=== PATIENT | female | born 1940 | race Caucasian/White ===

== ENCOUNTER 2018-12-03 15:55 | Inpatient (IN) | payer MEDICARE ==
--- NOTE | 2018-12-03 17:05 | ED ---
Chest Pain HPI - General Chief Complaint: Chest Pain Stated Complaint: Abnormal EKG Time Seen by Provider: 12/03/18 16:27 Source: patient, RN notes reviewed, old records reviewed Mode of arrival: wheelchair Limitations: no limitations - History of Present Illness Initial Comments: This is a 78-year-old female the ER for evaluation patient coming as presentation from family doctor's office for evaluation here emergency room. Patient does have chest pain left arm pain. He does have history of heart catheterization but no significant history of cardiac risk factors. No shortness of breath or diaphoresis -: minutes(s) Onset: during rest Pain Location: left chest Pain Radiation: LUE Severity: mild Severity scale (1-10): 3 Quality: aching, heaviness Consistency: constant Improves With: nothing Worsens With: exertion Anginal Symptoms: nausea Other Symptoms: other (None) Treatments Prior to Arrival: none - Related Data Home Medications Medication Instructions Recorded Confirmed Aspirin [Adult Low Dose Aspirin EC] 81 mg PO DAILY 12/03/18 12/03/18 Cetirizine HCl [Zyrtec] 10 mg PO DAILY PRN 12/03/18 12/03/18 Allergies Allergy/AdvReac Type Severity Reaction Status Date / Time codeine Allergy Unknown Verified 12/03/18 16:47 Latex, Natural Rubber Allergy Itching Verified 12/03/18 16:47 Review of Systems ROS Statement: Those systems with pertinent positive or pertinent negative responses have been documented in the HPI. ROS Other: All systems not noted in ROS Statement are negative. EKG Findings - EKG Comments: EKG Findings:: EKG shows sinus tenderness 60, ME 162, QRS 80, QTC 401 Past Medical History Past Medical History: No Reported History History of Any Multi-Drug Resistant Organisms: None Reported Past Surgical History: Heart Catheterization With Stent, Tonsillectomy Past Psychological History: No Psychological Hx Reported Smoking Status: Never smoker Past Alcohol Use History: Daily Past Drug Use History: None Reported General Exam Limitations: no limitations Course Vital Signs 12/03/18 16:00 Temperature 97.6 F Pulse Rate 69 Respiratory 18 Rate Blood Pressure 183/78 O2 Sat by Pulse 97 Oximetry - Reevaluation(s) Reevaluation #1: 12/03/18 18:16 Spoke with patient's primary care doctor prior to patient arrival Reevaluation #2: 12/03/18 18:16 Medical record is reviewed Reevaluation #3: 01/02/19 18:16 Patient does have persistent chest pain Reevaluation #4: 12/03/18 18:16 Repeat EKG Reevaluation #5: 12/03/18 18:16 spoke w cardiology regarding positive troponin, they're aware 12/03/18 18:16 - Consultations Consultation #1: Spoke with Dr. Mason which regarding admission he is agreeable Chest Pain MDM - MDM 78 female the ER for evaluation patient does say for evaluation of left arm pain chest pain. Patient sent in by primary care patient does have non-ST elevated OH troponin 0.5. Patient will be admitted for anticoagulation telemetry and cardiac monitoring. Cardiology to evaluate Critical Care Time Critical Care Time: Yes Total Critical Care Time: 31 Disposition Clinical Impression: Chest pain, NSTEMI (non-ST elevated myocardial infarction) Disposition: ADMITTED IP TO THIS HOSP Condition: Fair Instructions: Chest Pain (ED) Is patient prescribed a controlled substance at d/c from ED?: No Referrals: Nomi Naylor MD [Primary Care Provider] - 1-2 days
[2018-12-03 17:24] LABS: Basophils # (A) 0.1 k/uL (0-0.2); Basophils % (A) 1 %; Eosinophils # (A) 0.1 k/uL (0-0.7); Eosinophils % (A) 2 %; HCT 46.8 % (34.0-46.0); HGB 15.1 gm/dL (11.4-16.0); Lymphocytes # (A) 2.5 k/uL (1.0-4.8); Lymphocytes % (A) 34 %; MCH 29.4 pg (25.0-35.0); MCHC 32.3 g/dL (31.0-37.0); MCV 90.8 fL (80.0-100.0); Mean Platelet Volume 7.4; Monocytes # (A) 0.3 k/uL (0-1.0); Monocytes % (A) 4 %; Neutrophils # (A) 4.1 k/uL (1.3-7.7); Neutrophils % (A) 57 %; Platelet Count 198 k/uL (150-450); RBC 5.15 m/uL (3.80-5.40); RDW 13.5 % (11.5-15.5); WBC 7.3 k/uL (3.8-10.6)
[2018-12-03 17:31] LABS: ALT 25 U/L (9-52); AST 30 U/L (14-36); Alkaline Phosphatase 62 U/L (38-126); Anion Gap 10 mmol/L; Blood Urea Nitrogen 15 mg/dL (7-17); Calcium 9.6 mg/dL (8.4-10.2); Carbon Dioxide 25 mmol/L (22-30); Chloride 108 mmol/L (98-107); Glucose 124 mg/dL (74-99); Potassium 3.7 mmol/L (3.5-5.1); Sodium 143 mmol/L (137-145); Total Bilirubin 0.3 mg/dL (0.2-1.3); Total Protein 7.1 g/dL (6.3-8.2)
[2018-12-03 17:34] LABS: INR 0.9 (<1.2); Partial Thromboplastin Time 25.7 sec (22.0-30.0)
[2018-12-03 17:42] LABS: Creatine Kinase MB 3.6 ng/mL (0.0-2.4)
[2018-12-03 17:56] LABS: Troponin I 0.593 ng/mL (0.000-0.034)
--- NOTE | 2018-12-03 17:58 | XR ---
EXAMINATION TYPE: XR chest 2V DATE OF EXAM: 12/03/2018 COMPARISON: NONE HISTORY: Chest pain TECHNIQUE: Frontal and lateral views of the chest are obtained. FINDINGS: Heart and mediastinum are normal. Lungs are clear. Costophrenic angles are clear. Bony tho rax is intact. There are chest leads. IMPRESSION: No active cardiopulmonary disease. Normal heart.
[2018-12-03] MEDS ORDERED: HEPARIN SODIUM,PORCINE 5,000 UNIT/ML 1 ML VIAL IV PRN (18:13)
[2018-12-03] MEDS ORDERED: HEPARIN SODIUM,PORCINE 5,000 UNIT/ML 1 ML VIAL IV ONE (18:13)
[2018-12-03] MEDS ORDERED: NITROGLYCERIN SL TABS 0.4 MG TAB SUBLINGUAL PRN (18:13)
[2018-12-03] MEDS: HEPARIN SOD,PORK IN 0.45% NACL 25,000 UNIT in 0.45% NACL 1 250ML.BAG IV SCH (18:45)
--- NOTE | 2018-12-03 20:07 | P.HPIM ---
History of Present Illness H&P Date: 12/03/18 The patient is an 78 yo F with a PMH of CAD s/p 1 stent 15 years ago who was sent to the ED from her PMDs office due to substernal chest discomfort. The patient notes that over the past 3 months, she has been getting substernal chest discomfort that wakes her up sleep, occuring 1-2 x/week at 5-6 am in the morning usually, 3/10, w/ radiation to LUE, which would usually resolve within 2 minutes with a baby aspirin. She had a similar episode this am though noted that the pain persisted for ~ 10 minutes and she had to take 2 baby aspirins. She had associated lightheadedness but denied any SOB, palpitations, orthopnea, PND, nausea, vomiting, cough, or chills. She denied any associated w/ her dietary habits and denied having GERD or taking any OTC antacids or PPIs. She further denied any recent travel, sick contacts, fever, fever, chills, diarrhea , or LE swelling. At her daughter's insistence, she went to see her PMD who advised her to come to the ED. The patient notes that hasn't seen a [employer] in over a decade and doesn't routinely take aspirin or plavix. She only takes OTC Enablex for urinary incontinence and denied taking any additional medications. In the ED, the patient underwent a comprehensive w/u with CXR unremarkable, Troponin elevated to 0.593, CK-MB elevated at 3.6, WBC 7.3, Hgb 15, EKG showing normal sinus rhythm @ 68 bpm. Review of Systems Pertinent positives and negatives as discussed in HPI, a complete review of systems was performed and all other systems are negative. Past Medical History Past Medical History: No Reported History History of Any Multi-Drug Resistant Organisms: None Reported Past Surgical History: Heart Catheterization With Stent, Tonsillectomy Past Psychological History: No Psychological Hx Reported Smoking Status: Never smoker Past Alcohol Use History: Daily Past Drug Use History: None Reported Medications and Allergies Home Medications Medication Instructions Recorded Confirmed Type Aspirin [Adult Low Dose Aspirin EC] 81 mg PO DAILY 12/03/18 12/03/18 History Cetirizine HCl [Zyrtec] 10 mg PO DAILY PRN 12/03/18 12/03/18 History Allergies Allergy/AdvReac Type Severity Reaction Status Date / Time codeine Allergy Unknown Verified 12/03/18 16:47 Latex, Natural Rubber Allergy Itching Verified 12/03/18 16:47 Physical Exam Vitals: Vital Signs Temp Pulse Resp BP Pulse Ox 12/03/18 18:50 97.2 F L 61 16 116/78 96 12/03/18 16:00 97.6 F 69 18 183/78 97 Intake and Output 12/03/18 12/03/18 12/03/18 06:59 14:59 22:59 Other: Weight 86.183 kg General: [non toxic], [no distress], [appears at stated age], [normal weight] Derm: [no unusual rashes/lesions] [no unusual ecchymoses], [warm], [dry] Head: [atraumatic], [normocephalic], [symmetric] Eyes: [EOMI], [no lid lag], [anicteric sclera], [pupils equal round reactive to light] ENT: [Nose and ears atraumatic], [no thrush], [no pharyngeal erythema] Neck: [No thyromegaly], [no cervical lymphadenopathy], [trachea midline], [ supple] Mouth: [no lip lesion], [mucus membranes moist] Cardiovascular: [S1S2 reg], [no murmur], [positive posterior tibial pulse bilateral], [no edema], [capillary refill less than 2 seconds] Lungs: [CTA bilateral], [no rhonchi, no rales] , [no accessory muscle use] Abdominal: [soft], [ nontender to palpation], [no guarding], [no appreciable organomegaly], [normal bowel sounds] Ext: [no gross muscle atrophy], [muscle strength 5 out of 5 in all 4 extremities grossly], [no contractures], trace LE edema adrienne Neuro: [ CN II-XI grossly intact], [light touch intact all 4 extremities], [ finger to nose within normal limits], Psych: [Alert], [oriented], [appropriate affect] Results CBC & Chem 7: 12/03/18 16:55 12/03/18 16:55 Labs: Abnormal Lab Results - Last 24 Hours (Table) 12/03/18 12/03/18 12/03/18 Range/Units 16:55 16:55 16:55 Hct 46.8 H (34.0-46.0) % Chloride 108 H (98-107) mmol/L Glucose 124 H (74-99) mg/dL CK-MB (CK-2) 3.6 H (0.0-2.4) ng/mL Troponin I 0.593 H* (0.000-0.034) ng/mL Assessment and Plan Plan: NSTEMI -Trend troponin, EKG -Cardiology consult -Echocardiogram -C/w Aspirin, plavix, IV heparin -C/w Tele monitoring -C/w Lopressor PO -Start Lipitor -Check A1C, Lipid profile DVT//GI prophylaxis - IV Heparin - No indication for GI prophylaxis The patient is admitted with an anticipated greater than 2 midnight stay for evaluation of chest pain Surrogate decision-maker: CODE STATUS:Full-code Discussed with: Patient, daughter, Anticipated discharge date: 12/04/[address]: Home A total of 60 minutes was spent on the care of this complex patient more than 50 % of the time was spent in counseling and care coordination.
[2018-12-03] MEDS ORDERED: ATORVASTATIN 80 MG TAB PO STA (20:10)
[2018-12-03] MEDS: CLOPIDOGREL 75 MG TAB PO SCH (21:12)
[2018-12-03] MEDS: METOPROLOL TARTRATE 25 MG TAB PO SCH (21:12)
[2018-12-03 23:47] LABS: Creatine Kinase MB 3.5 ng/mL (0.0-2.4)
[2018-12-03 23:51] LABS: Troponin I 0.875 ng/mL (0.000-0.034)
[2018-12-04 06:08] LABS: Mean Platelet Volume 7.5; Platelet Count 176 k/uL (150-450)
[2018-12-04] MEDS ORDERED: hydrALAZINE HCL 20 MG/ML 1 ML VIAL IVP STA (06:26)
[2018-12-04] MEDS ORDERED: FUROSEMIDE 40 MG TAB PO STA (06:26)
[2018-12-04 06:51] LABS: Creatine Kinase MB 2.2 ng/mL (0.0-2.4)
[2018-12-04 07:00] LABS: Troponin I 0.504 ng/mL (0.000-0.034)
[2018-12-04 07:35] LABS: Cholesterol 232 mg/dL (<200); HDL Cholesterol 51 mg/dL (40-60); LDL Cholesterol,Calculated 159 mg/dL (0-99); Triglycerides 112 mg/dL (<150)
--- NOTE | 2018-12-04 08:50 | P.CRDCN ---
History of Present Illness Consult date: 12/04/18 Requesting physician: Barry Jones Consult reason: non-Q-wave LA Chief complaint: Chest pain History of present illness: This is an 78-year-old female with history of coronary artery disease and prior stent placement 15 years ago, she does have a history of hypertension and hyperlipidemia as well. Patient does not take any medications at home, she is not on a statin and not on an aspirin. She just takes Zyrtec when necessary. Patient was directed by Dr. Salamanca to come to the emergency room. She's been experiencing midsternal chest pressure and heaviness off and on. She just recently returned from a trip she was taking in [place], she states she had several episodes of chest discomfort while she was there and has been having symptoms for some time. Her EKG on arrival here showed a normal sinus rhythm with nonspecific ST-T wave changes in the anterior leads, with some mild ST depression noted in 1 and aVL. Her chest x-ray did not reveal any acute changes. White blood cell count 7.3, hemoglobin 15.1, platelet count 198. Sodium 143, potassium 3.7, BUN 15, creatinine 0.5. Magnesium 2.0. Troponin 0.59, 0.87, 0.50. Blood pressure earlier this morning 210/90, heart rate in the 50s, 99% on 2 L of oxygen. At the time of my examination her blood pressure was 158/66. Chest x-ray did not reveal any active cardiopulmonary disease. Patient was seen and examined in the emergency room, currently chest pain-free. Past Medical History Past Medical History: No Reported History History of Any Multi-Drug Resistant Organisms: None Reported Past Surgical History: Heart Catheterization With Stent, Tonsillectomy Date of Last Stent Placement:: 2003 Past Psychological History: No Psychological Hx Reported Smoking Status: Never smoker Past Alcohol Use History: Daily Past Drug Use History: None Reported - Past Family History Mother History Unknown: Yes Medications and Allergies Home Medications Medication Instructions Recorded Confirmed Type Aspirin [Adult Low Dose Aspirin EC] 81 mg PO DAILY 12/03/18 12/03/18 History Cetirizine HCl [Zyrtec] 10 mg PO DAILY PRN 12/03/18 12/03/18 History Allergies Allergy/AdvReac Type Severity Reaction Status Date / Time codeine Allergy Unknown Verified 12/03/18 16:47 Latex, Natural Rubber Allergy Itching Verified 12/03/18 16:47 Physical Exam Vitals: Vital Signs Temp Pulse Pulse Resp BP BP Pulse Ox 12/04/18 08:00 63 22 159/67 12/04/18 07:00 66 22 206/72 12/04/18 06:00 46 L 17 211/89 12/04/18 05:01 56 L 18 204/74 99 12/04/18 05:00 48 L 19 98 12/04/18 04:50 19 12/04/18 04:00 48 L 21 167/81 12/04/18 03:00 49 L 22 167/81 12/04/18 02:00 56 L 17 167/81 12/04/18 01:04 61 16 167/81 97 12/04/18 01:00 56 L 37 H 12/04/18 00:00 52 L 18 169/65 12/03/18 23:00 51 L 9 L 156/74 12/03/18 22:00 54 L 16 187/166 12/03/18 21:55 58 L 18 175/76 99 12/03/18 21:13 54 L 18 191/78 100 12/03/18 21:00 54 L 12 12/03/18 20:00 59 L 5 L 95 12/03/18 19:00 62 15 116/54 98 12/03/18 18:50 97.2 F L 61 16 116/78 96 12/03/18 18:00 64 10 L 134/61 98 12/03/18 17:00 64 17 140/61 98 12/03/18 16:31 69 14 12/03/18 16:00 97.6 F 69 18 183/78 97 Intake and Output 12/03/18 12/04/18 12/04/18 22:59 06:59 14:59 Intake Total 101.333 Balance 101.333 Intake: Intake, IV Titration 101.333 Amount Heparin Sod,Pork in 0.45% 101.333 NaCl 25,000 unit In 0.45 % NaCl 1 250ml.bag @ 11. 604 UNITS/KG/HR 10 mls/hr IV .Q24H [facility] Rx#: [id number] Other: # Voids 1 Weight 86.183 kg 86.183 kg PHYSICAL EXAMINATION: GENERAL: 78-year-old female in no acute distress at the time of my examination HEENT: Head is atraumatic, normocephalic. Pupils equal, round. Sclera anicteric. Conjunctiva are clear. Mucous membranes of the mouth are moist. Neck is supple. There is no elevated jugular venous pressure. No carotid bruit is heard. HEART EXAMINATION: Heart S1 S2 1 systolic murmur is heard. CHEST EXAMINATION: Lungs are clear to auscultation and precussion. No chest wall tenderness is noted on palpation or with deep breathing. ABDOMEN: Soft, nontender. Bowel sounds are heard. No organomegaly noted. EXTREMITIES: 2+ peripheral pulses with no evidence of peripheral edema and no calf tenderness noted. NEUROLOGIC patient is awake, alert and oriented 3 . . Results 12/04/18 05:50 12/03/18 16:55 Cardiac Enzymes 12/03/18 12/03/18 12/03/18 Range/Units 16:55 16:55 23:00 AST 30 (14-36) U/L CK-MB (CK-2) 3.6 H 3.5 H (0.0-2.4) ng/mL Troponin I 0.593 H* 0.875 H* (0.000-0.034) ng/mL 12/04/18 Range/Units 05:50 AST (14-36) U/L CK-MB (CK-2) 2.2 (0.0-2.4) ng/mL Troponin I 0.504 H* (0.000-0.034) ng/mL Coagulation 12/03/18 12/04/18 Range/Units 16:55 02:38 PT 10.0 (9.0-12.0) sec APTT 25.7 40.4 H (22.0-30.0) sec Lipids 12/04/18 Range/Units 05:50 Triglycerides 112 (<150) mg/dL Cholesterol 232 H (<200) mg/dL HDL Cholesterol 51 (40-60) mg/dL CBC 12/03/18 12/04/18 Range/Units 16:55 05:50 WBC 7.3 (3.8-10.6) k/uL RBC 5.15 (3.80-5.40) m/uL Hgb 15.1 (11.4-16.0) gm/dL Hct 46.8 H (34.0-46.0) % Plt Count 198 176 (150-450) k/uL Comprehensive Metabolic Panel 12/03/18 Range/Units 16:55 Sodium 143 (137-145) mmol/L Potassium 3.7 (3.5-5.1) mmol/L Chloride 108 H (98-107) mmol/L Carbon Dioxide 25 (22-30) mmol/L BUN 15 (7-17) mg/dL Creatinine 0.55 (0.52-1.04) mg/dL Glucose 124 H (74-99) mg/dL Calcium 9.6 (8.4-10.2) mg/dL AST 30 (14-36) U/L ALT 25 (9-52) U/L Alkaline Phosphatase 62 (38-126) U/L Total Protein 7.1 (6.3-8.2) g/dL Albumin 4.0 (3.5-5.0) g/dL Current Medications Generic Name Dose Route Start Last Admin Trade Name Freq PRN Reason Stop Dose Admin Aspirin 325 mg 12/04/18 09:00 Aspirin PO DAILY [facility] Clopidogrel Bisulfate 75 mg 12/03/18 20:15 12/03/18 21:12 Plavix PO 75 mg DAILY [facility] Administration Heparin Sodium (Porcine) 0 unit 12/03/18 18:13 12/04/18 04:57 Heparin IV 2,155 unit Q6HR PRN Administration Low PTT Protocol Hydralazine HCl 25 mg 12/04/18 09:00 Apresoline PO BID [facility] Heparin Sodium/Sodium Chloride 250 mls @ 10 mls/hr 12/03/18 18:15 12/04/18 04 :53 25,000 unit/ Sodium Chloride IV 13.61 units/kg/hr .Q24H [facility] 11.72 mls/hr Titration Protocol 11.604 UNITS/KG/HR Metoprolol Tartrate 25 mg 12/03/18 21:00 12/03/18 21:12 Lopressor PO Not Given BID [facility] Nitroglycerin 0.4 mg 12/03/18 18:13 Nitrostat SUBLINGUAL Q5M PRN Chest Pain Intake and Output 12/03/18 12/04/18 12/04/18 22:59 06:59 14:59 Intake Total 101.333 Balance 101.333 Intake: Intake, IV Titration 101.333 Amount Heparin Sod,Pork in 0.45% 101.333 NaCl 25,000 unit In 0.45 % NaCl 1 250ml.bag @ 11. 604 UNITS/KG/HR 10 mls/hr IV .Q24H [facility] Rx#: [id number] Other: # Voids 1 Weight 86.183 kg 86.183 kg 12/04/18 05:50 12/03/18 16:55 EKG Interpretations (text) EKG shows a normal sinus rhythm with nonspecific ST-T wave changes. Subsequent EKG shows normal sinus rhythm with nonspecific changes in V1 and mild ST depression noted in 1 and aVL. Assessment and Plan Plan: Assessment and plan #1 symptoms of midsternal chest pressure and heaviness, possible non-Q-wave myocardial infarction. Troponins 0.59, 0.87, 0.50. Shows normal sinus rhythm with nonspecific ST-T wave changes. #2 accelerated hypertension #3 history of hypertension, not on any blood pressure medications at home #4 hyperlipidemia, not on statins #5 known history of coronary artery disease with prior stent placement 15 years ago, not on aspirin at home. Plan We will obtain a stat echocardiogram with Doppler study. Start the patient on Lipitor 80, continue aspirin daily, continue IV heparin, patient has also been started on metoprolol and Apresoline in the emergency room. The patient has been advised to undergo cardiac catheterization for more definitive diagnosis, the risks and the benefits were explained to the patient in detail and she is willing to proceed. Further recommendations will be based on these findings and the patient's clinical course. DNP note has been reviewed, I agree with a documented findings and plan of care. Patient was seen and examined.
[2018-12-04] MEDS: METOPROLOL TARTRATE 25 MG TAB PO SCH (08:54)
[2018-12-04] MEDS: CLOPIDOGREL 75 MG TAB PO SCH (08:54)
[2018-12-04] MEDS ORDERED: ASPIRIN 325 MG TAB PO SCH (09:00)
[2018-12-04] MEDS ORDERED: hydrALAZINE HCL 25 MG TAB PO SCH (09:00)
[2018-12-04] MEDS ORDERED: ALPRAZolam 0.5 MG TAB PO PRN (09:36)
[2018-12-04] MEDS ORDERED: ATORVASTATIN 80 MG TAB PO STA (09:36)
[2018-12-04] MEDS ORDERED: ASPIRIN 325 MG TAB PO STA (09:36)
[2018-12-04] MEDS ORDERED: ALPRAZolam 0.25 MG TAB PO PRN (09:36)
[2018-12-04] MEDS ORDERED: SODIUM CHLORIDE 0.9% 1,000 ML in EMPTY BAG 1 BAG IV ONE (09:36)
[2018-12-04] MEDS ORDERED: NITROGLYCERIN SL TABS 0.4 MG TAB SUBLINGUAL PRN (09:36)
--- NOTE | 2018-12-04 09:50 | P.CRDCN ---
History of Present Illness History of present illness: Patient interviewed and examined Impression Patient presenting with recurrent midsternal discomfort that radiates down her left arm and possibly into the neck Weeks. In the early hours of the morning Denies any exertional symptoms but she has stopped swimming for about a year Known coronary artery disease detected about 15 years back and at that time she had a stent Not taking any cardiac or atherosclerosis prevention medications No ST segment abnormalities of ECG but intermittent sinus bradycardia is noted sometimes in the 40s asymptomatic no syncope Hemoglobin normal Electrolytes normal LDL 159 to the floor salt to 32 HDL 51 Abnormal troponins of 0.6, 0.9 and 0.5 consistent with a non-Q-wave myocardial infarction Normal renal function Elevated blood pressures/hypertension Suggest Low-dose beta blockers aspirin and statins Detailed discussion with patient regarding further management Would recommend coronary angiography and the patient would like to proceed Further management thereafter Watch for bradycardia Blood pressure management Past Medical History Past Medical History: No Reported History History of Any Multi-Drug Resistant Organisms: None Reported Past Surgical History: Heart Catheterization With Stent, Tonsillectomy Date of Last Stent Placement:: 2003 Past Psychological History: No Psychological Hx Reported Smoking Status: Never smoker Past Alcohol Use History: Daily Past Drug Use History: None Reported - Past Family History Mother History Unknown: Yes Medications and Allergies Home Medications Medication Instructions Recorded Confirmed Type Aspirin [Adult Low Dose Aspirin EC] 81 mg PO DAILY 12/03/18 12/03/18 History Cetirizine HCl [Zyrtec] 10 mg PO DAILY PRN 12/03/18 12/03/18 History Allergies Allergy/AdvReac Type Severity Reaction Status Date / Time codeine Allergy Unknown Verified 12/03/18 16:47 Latex, Natural Rubber Allergy Itching Verified 12/03/18 16:47 Physical Exam Vitals: Vital Signs Temp Pulse Pulse Resp BP BP Pulse Ox 12/04/18 08:00 63 22 159/67 12/04/18 07:00 66 22 206/72 12/04/18 06:00 46 L 17 211/89 12/04/18 05:01 56 L 18 204/74 99 12/04/18 05:00 48 L 19 98 12/04/18 04:50 19 12/04/18 04:00 48 L 21 167/81 12/04/18 03:00 49 L 22 167/81 12/04/18 02:00 56 L 17 167/81 12/04/18 01:04 61 16 167/81 97 12/04/18 01:00 56 L 37 H 12/04/18 00:00 52 L 18 169/65 12/03/18 23:00 51 L 9 L 156/74 12/03/18 22:00 54 L 16 187/166 12/03/18 21:55 58 L 18 175/76 99 12/03/18 21:13 54 L 18 191/78 100 12/03/18 21:00 54 L 12 12/03/18 20:00 59 L 5 L 95 12/03/18 19:00 62 15 116/54 98 12/03/18 18:50 97.2 F L 61 16 116/78 96 12/03/18 18:00 64 10 L 134/61 98 12/03/18 17:00 64 17 140/61 98 12/03/18 16:31 69 14 12/03/18 16:00 97.6 F 69 18 183/78 97 Intake and Output 12/03/18 12/04/18 12/04/18 22:59 06:59 14:59 Intake Total 101.333 Balance 101.333 Intake: Intake, IV Titration 101.333 Amount Heparin Sod,Pork in 0.45% 101.333 NaCl 25,000 unit In 0.45 % NaCl 1 250ml.bag @ 11. 604 UNITS/KG/HR 10 mls/hr IV .Q24H [facility] Rx#: [id number] Other: # Voids 1 Weight 86.183 kg 86.183 kg Results 12/04/18 05:50 12/03/18 16:55 Cardiac Enzymes 12/03/18 12/03/18 12/03/18 Range/Units 16:55 16:55 23:00 AST 30 (14-36) U/L CK-MB (CK-2) 3.6 H 3.5 H (0.0-2.4) ng/mL Troponin I 0.593 H* 0.875 H* (0.000-0.034) ng/mL 12/04/18 Range/Units 05:50 AST (14-36) U/L CK-MB (CK-2) 2.2 (0.0-2.4) ng/mL Troponin I 0.504 H* (0.000-0.034) ng/mL Coagulation 12/03/18 12/04/18 Range/Units 16:55 02:38 PT 10.0 (9.0-12.0) sec APTT 25.7 40.4 H (22.0-30.0) sec Lipids 12/04/18 Range/Units 05:50 Triglycerides 112 (<150) mg/dL Cholesterol 232 H (<200) mg/dL HDL Cholesterol 51 (40-60) mg/dL CBC 12/03/18 12/04/18 Range/Units 16:55 05:50 WBC 7.3 (3.8-10.6) k/uL RBC 5.15 (3.80-5.40) m/uL Hgb 15.1 (11.4-16.0) gm/dL Hct 46.8 H (34.0-46.0) % Plt Count 198 176 (150-450) k/uL Comprehensive Metabolic Panel 12/03/18 Range/Units 16:55 Sodium 143 (137-145) mmol/L Potassium 3.7 (3.5-5.1) mmol/L Chloride 108 H (98-107) mmol/L Carbon Dioxide 25 (22-30) mmol/L BUN 15 (7-17) mg/dL Creatinine 0.55 (0.52-1.04) mg/dL Glucose 124 H (74-99) mg/dL Calcium 9.6 (8.4-10.2) mg/dL AST 30 (14-36) U/L ALT 25 (9-52) U/L Alkaline Phosphatase 62 (38-126) U/L Total Protein 7.1 (6.3-8.2) g/dL Albumin 4.0 (3.5-5.0) g/dL Current Medications Generic Name Dose Route Start Last Admin Trade Name Freq PRN Reason Stop Dose Admin Alprazolam 0.25 mg 12/04/18 09:36 Xanax PO Q6HR PRN Mild Anxiety Alprazolam 0.5 mg 12/04/18 09:36 Xanax PO Q6HR PRN Moderate Anxiety Aspirin 81 mg 12/05/18 09:00 Aspirin PO DAILY [facility] Atorvastatin Calcium 40 mg 12/04/18 21:00 Lipitor PO HS [facility] Heparin Sodium (Porcine) 0 unit 12/03/18 18:13 12/04/18 04:57 Heparin IV 2,155 unit Q6HR PRN Administration Low PTT Protocol Heparin Sodium/Sodium Chloride 250 mls @ 10 mls/hr 12/03/18 18:15 12/04/18 04 :53 25,000 unit/ Sodium Chloride IV 13.61 units/kg/hr .Q24H [facility] 11.72 mls/hr Titration Protocol 11.604 UNITS/KG/HR Sodium Chloride 1,000 ml/ IV 1,000 mls @ 86.18 mls/hr 12/04/18 09:36 Solution IV 12/04/18 21:12 .[id number] ONE 1 ML/KG/HR Losartan Potassium 50 mg 12/04/18 10:00 Cozaar PO DAILY [facility] Metoprolol Tartrate 25 mg 12/03/18 21:00 12/04/18 08:54 Lopressor PO 25 mg BID [facility] Administration Nitroglycerin 0.4 mg 12/04/18 09:36 Nitrostat SUBLINGUAL Q5M PRN Chest Pain Intake and Output 12/03/18 12/04/18 12/04/18 22:59 06:59 14:59 Intake Total 101.333 Balance 101.333 Intake: Intake, IV Titration 101.333 Amount Heparin Sod,Pork in 0.45% 101.333 NaCl 25,000 unit In 0.45 % NaCl 1 250ml.bag @ 11. 604 UNITS/KG/HR 10 mls/hr IV .Q24H [facility] Rx#: [id number] Other: # Voids 1 Weight 86.183 kg 86.183 kg 12/04/18 05:50 12/03/18 16:55
[2018-12-04] MEDS ORDERED: hydrALAZINE HCL 10 MG TAB PO PRN (11:36)
--- NOTE | 2018-12-04 11:43 | P.PN ---
Subjective Patient admitted for non-STEMI. Patient reported intermittent retrosternal chest pains with radiation to the left arm for the last couple weeks. Sound was accompanied by shortness of breath and decreased exercise tolerance. Some of this attacks of the pain became more frequent over the last few days and will particular bothers him on the day of admission. She stated that pain would last a few minutes and then resolve on its own. She will get pains with exertion or at rest. In the emergency department EKG did not show any significant acute abnormalities. Chest x-ray was unremarkable. Her troponin was elevated at 0.5. Patient was started on aspirin and heparin drip and admitted for further evaluation. This morning she is chest pain-free but quite anxious regarding on calming cardiac catheterization. She didn't have any shortness of breath nausea or vomiting currently. Been quite elevated. She denies any history of smoking or any family history of heart attacks. She does not have any regular follow-up this with a physician. She does not take any home medication is any medical problems. REVIEW OF SYSTEMS: CONSTITUTIONAL: No fever or chills HEENT: No changes in vision or voice CARDIOVASCULAR: no chest pain or abnormal heart beats, or any swelling in ankles or feet. RESPIRATORY: No wheezing or coughing. GASTROINTESTINAL: No abdominal pain, no nausea no vomiting no constipation or diarrhea GENITOURINARY: no any urinary urgency, frequency or burning, and there has been no blood in her urine. no flank pain. MUSCULOSKELETAL: She notes full range of motion of all her joints without pain or swelling. NEUROLOGICAL: , no headache. no vision changes, or fainting. No numbness or tingling. Objective - Vital Signs Vital signs: Vital Signs Temp 97.2 F L 12/03/18 18:50 Pulse 46 L 12/04/18 11:00 Resp 18 12/04/18 11:00 BP 139/64 12/04/18 11:00 Pulse Ox 99 12/04/18 05:01 Intake & Output 12/03/18 12/04/18 12/04/18 18:59 06:59 18:59 Intake Total 101.333 Balance 101.333 Weight 86.183 kg 86.183 kg Intake: Intake, IV Titration 101.333 Amount Heparin Sod,Pork in 0.45% 101.333 NaCl 25,000 unit In 0.45 % NaCl 1 250ml.bag @ 11. 604 UNITS/KG/HR 10 mls/hr IV .Q24H [facility] Rx#: [id number] Other: # Voids 1 - Exam Vital Signs: I have reviewed the vital signs. GENERAL: Well-nourished, Well-developed , no apparent distress, cooperative Eyes: PERRL, extraoculry movements intact, clear conjunctiva Head: : Atraumatic external nose and ears, oropharyngeal mucosa is moist without lesions or exudates Neck: Symmetric, trachea midline, No thyromegaly, no masses or neck vain pulsation, no neck rigidity CVS: +S1/S2, No murmurs or gallops. Peripheral pulses 2+ and equal in all extremities. RESP: Unlabored respiratory effort. Clear to auscultation bilaterally. Abdomen: Bowel sounds present in all 4 quadrants, Soft to palpation, Nontender/ Nondistended, No hepatosplenomegaly, no hernias or masses, no CVA tnderness Musculoskeletal: Extremities w/o deformity, No cyanosis or clubbing, no joint swelling Skin: Warm, Dry. No rashes or lesions Neuro: grey percher II-XII grossly intact, motor strenght 5/5 i upper and lower extremities, no clonus, patellar DTRs 2+ and sympetrical Psych: Awake, Alert, & Oriented (AAO) x3 Appropriate mood and affect - Labs CBC & Chem 7: 12/04/18 05:50 12/03/18 16:55 Labs: Abnormal Lab Results - Last 24 Hours (Table) 12/03/18 12/03/18 12/03/18 Range/Units 16:55 16:55 16:55 Hct 46.8 H (34.0-46.0) % APTT (22.0-30.0) sec Chloride 108 H (98-107) mmol/L Glucose 124 H (74-99) mg/dL CK-MB (CK-2) 3.6 H (0.0-2.4) ng/mL Troponin I 0.593 H* (0.000-0.034) ng/mL Cholesterol (<200) mg/dL LDL Cholesterol, Calc (0-99) mg/dL 12/03/18 12/04/18 12/04/18 Range/Units 23:00 02:38 05:50 Hct (34.0-46.0) % APTT 40.4 H (22.0-30.0) sec Chloride (98-107) mmol/L Glucose (74-99) mg/dL CK-MB (CK-2) 3.5 H (0.0-2.4) ng/mL Troponin I 0.875 H* 0.504 H* (0.000-0.034) ng/mL Cholesterol (<200) mg/dL LDL Cholesterol, Calc (0-99) mg/dL 12/04/18 12/04/18 Range/Units 05:50 11:09 Hct (34.0-46.0) % APTT 55.0 H (22.0-30.0) sec Chloride (98-107) mmol/L Glucose (74-99) mg/dL CK-MB (CK-2) (0.0-2.4) ng/mL Troponin I (0.000-0.034) ng/mL Cholesterol 232 H (<200) mg/dL LDL Cholesterol, Calc 159 H (0-99) mg/dL Assessment and Plan Assessment: 1. Non-STEMI Cardiology evaluated and planned for cardiac catheterization Continue aspirin, heparin, statin, beta jose Blood pressure control Hydration Echocardiogram 2. Uncontrolled hypertension I presents emergency Started on Lopressor and Cozaar We will await response to these medications add hydralazine orally when necessary
--- NOTE | 2018-12-04 13:53 | ECHOF ---
Referral Reason:elevTrop MEASUREMENTS -------- HEIGHT: 162.6 cm WEIGHT: 86.2 kg BP: 204/74 RVIDd: 2.5 cm (< 3.3) IVSd: 1.5 cm (0.6 - 1.1) LVIDd: 3.6 cm (3.9 - 5.3) LVPWd: 1.4 cm (0.6 - 1.1) IVSs: 2.0 cm LVIDs: 2.2 cm LVPWs: 2.0 cm LAESV Index (A-L): 23.33 ml/m Ao Diam: 2.4 cm (2.0 - 3.7) AV Cusp: 1.7 cm (1.5 - 2.6) LA Diam: 3.3 cm (2.7 - 3.8) MV EXCURSION: 12.495 mm (> 18.000) MV EF SLOPE: 43 mm/s (70 - 150) EPSS: 1.0 cm MV E Des: 1.13 m/s MV DecT: 205 ms MV A Des: 1.22 m/s MV E/A Ratio: 0.92 AV maxP.27 mmHg AV meanP.46 mmHg RAP: 5.00 mmHg RVSP: 35.70 mmHg FINDINGS -------- Sinus rhythm. The left ventricular size is normal. There is moderate concentric left ventricular hypertrophy. O verall left ventricular systolic function is normal with, an EF between 55 - 60 %. The right ventricle is normal in size and function. Normal LA size by volume 22+/-6 ml/m2. The right atrium is normal in size. Aortic valve is trileaflet and is mildly thickened. There is mild aortic valve sclerosis. Peak/me an gradient across the Aortic Valve is 16.27mmHg / 7.46mmHg. The mitral valve leaflets are mildly thickened. Mild mitral regurgitation is present. Mild tricuspid regurgitation present. There is borderline pulmonary hypertension. The right ventr icular systolic pressure, as measured by Doppler, is 35.70mmHg. Trace/mild (physiologic) pulmonic regurgitation. The aortic root size is normal. Normal inferior vena cava with normal inspiratory collapse consistent with estimated right atrial pre ssure of 5 mmHg. The pericardium is normal. CONCLUSIONS -------- 1. Sinus rhythm. 2. The left ventricular size is normal. 3. There is moderate concentric left ventricular hypertrophy. 4. Overall left ventricular systolic function is normal with, an EF between 55 - 60 %. 5. The right ventricle is normal in size and function. 6. Normal LA size by volume 22+/-6 ml/m2. 7. The right atrium is normal in size. 8. Aortic valve is trileaflet and is mildly thickened. 9. There is mild aortic valve sclerosis. 10. Peak/mean gradient across the Aortic Valve is 16.27mmHg / 7.46mmHg. 11. The mitral valve leaflets are mildly thickened. 12. Mild mitral regurgitation is present. 13. Mild tricuspid regurgitation present. 14. There is borderline pulmonary hypertension. 15. The right ventricular systolic pressure, as measured by Doppler, is 35.70mmHg. 16. Trace/mild (physiologic) pulmonic regurgitation. 17. The aortic root size is normal. 18. Normal inferior vena cava with normal inspiratory collapse consistent with estimated right atrial pressure of 5 mmHg. 19. The pericardium is normal. SOLE POLISHER: Deb Wetzel RDCS
[2018-12-04] MEDS ORDERED: LOSARTAN 50 MG TAB PO SCH (14:00)
[2018-12-04 14:55] LABS: Hemoglobin A1C 5.9 % (4.0-6.0)
--- NOTE | 2018-12-04 15:18 | CDI ---
Documentation Clarification Form Date: 12/04/2018 3:06:49 PM From: Virginia RamirezMARCOS beard, CCDS Admit Date: 12/03/2018 6:13:00 PM Patient Name: Iris Lara Visit Number: [id number] Discharge Date: ATTENTION: The Clinical Documentation Specialists (CDI) and [facility] Coding Staff appreciate your assistance in clarifying documentation. Please respond to the clarification below the line at the bottom and electronically sign. The CDI & [facility] Coding staff will review the response and follow-up if needed. Please note: Queries are made part of the Legal Health Record. If you have any questions, please contact the author of this message via ITS. Dr. Barry Jones: Conflicting documentation has been found in the medical record: Per the Cardiology consult on 12/04: Accelerated hypertension. Per the Attending 12/04 progress note: Uncontrolled hypertension. History/Risk Factors: CAD with previous stent placed 15 years ago, Hypertension & Hyperlipidemia both untreated. Clinical Indicators: Presented with chest pain radiating to left arm, diagnosed with a NSTEMI. BP: 183/78 - 191/78 - 156/74 - 211/89 Treatment: Pending heart catheterization, IV Heparin, Nitro sl, po Lipitor, po Plavix, po Lopressor, po Cozaar, po Lasix, IV Apresoline, po Aspirin. In your opinion, please clarify the specificity of the patient's hypertension for the most clinically appropriate diagnosis for this patient: Hypertension, Borderline Hypertensive Urgency Hypertensive Emergency Other, please specify Unable to determine (Last Revision: March 2018) MTDD
[2018-12-04] MEDS: HEPARIN SOD,PORK IN 0.45% NACL 25,000 UNIT in 0.45% NACL 1 250ML.BAG IV SCH (16:10)
[2018-12-04] MEDS: METOPROLOL TARTRATE 12.5 MG TAB PO SCH (20:41)
[2018-12-04] MEDS ORDERED: LOSARTAN 50 MG TAB PO STA (23:44)
[2018-12-05] MEDS: hydrALAZINE HCL 20 MG/ML 1 ML VIAL IVP PRN (05:11)
[2018-12-05 06:30] LABS: Mean Platelet Volume 7.9; Platelet Count 179 k/uL (150-450)
[2018-12-05] MEDS: LOSARTAN 50 MG TAB PO SCH (08:40)
[2018-12-05] MEDS: METOPROLOL TARTRATE 12.5 MG TAB PO SCH ×2 (08:40→20:17)
--- NOTE | 2018-12-05 08:40 | CDI ---
Documentation Clarification Form Date: 12/04/2018 3:06:00 PM From: Virginia RamirezMARCOS beard, CCDS Admit Date: 12/03/2018 6:13:00 PM Patient Name: Iris Lara Visit Number: [id number] Discharge Date: ATTENTION: The Clinical Documentation Specialists (CDI) and [facility] Coding Staff appreciate your assistance in clarifying documentation. Please respond to the clarification below the line at the bottom and electronically sign. The CDI & [facility] Coding staff will review the response and follow-up if needed. Please note: Queries are made part of the Legal Health Record. If you have any questions, please contact the author of this message via ITS. Dr. Barry Jones: Conflicting documentation has been found in the medical record: Per the Cardiology consult on 12/04: Accelerated hypertension. Per the Attending 12/04 progress note: Uncontrolled hypertension. History/Risk Factors: CAD with previous stent placed 15 years ago, Hypertension & Hyperlipidemia both untreated. Clinical Indicators: Presented with chest pain radiating to left arm, diagnosed with a NSTEMI. BP: 183/78 - 191/78 - 156/74 - 211/89 Treatment: Pending heart catheterization, IV Heparin, Nitro sl, po Lipitor, po Plavix, po Lopressor, po Cozaar, po Lasix, IV Apresoline, po Aspirin. In your opinion, please clarify the specificity of the patient's hypertension for the most clinically appropriate diagnosis for this patient: Hypertension, Borderline Hypertensive Urgency Hypertensive Emergency Other, please specify Unable to determine (Last Revision: March 2018) MTDD
[2018-12-05] MEDS ORDERED: ASPIRIN 81 MG PO SCH (09:00)
[2018-12-05] MEDS ORDERED: LIDOCAINE 1% INJ 10MG/ML (20 ML MDV) ONE (12:54)
[2018-12-05] MEDS ORDERED: fentaNYL (PF) 50 MCG/ML 2 ML AMP ONE (12:59)
[2018-12-05] MEDS: MIDAZOLAM 2 MG/2 ML VIAL IV ONE ×2 (13:00→13:51)
[2018-12-05] MEDS: fentaNYL (PF) 50 MCG/ML 2 ML AMP IV ONE ×2 (13:00→13:55)
[2018-12-05] MEDS ORDERED: IV FLUID CONTINUATION 1,000 ML IV ONE (13:00)
[2018-12-05] MEDS ORDERED: LIDOCAINE 1% (PF) 10MG/ML VIAL SQ ONE (13:01)
[2018-12-05] MEDS ORDERED: NITROGLYCERIN SL TABS 0.4 MG TAB SUBLINGUAL ONE ×6 (13:05→14:06)
[2018-12-05] MEDS ORDERED: amLODIPine 5 MG TAB ONE (13:20)
[2018-12-05] MEDS ORDERED: ONDANSETRON 4 MG/2 ML VIAL ONE (13:22)
[2018-12-05] MEDS ORDERED: ONDANSETRON 4 MG/2 ML VIAL IVP ONE (13:25)
[2018-12-05] MEDS ORDERED: amLODIPine 5 MG TAB PO ONE (13:29)
[2018-12-05] MEDS ORDERED: TICAGRELOR 90 MG TAB ONE (13:36)
[2018-12-05] MEDS: ATROPINE SULFATE 0.1 MG/ML 10ML SYRINGE IV ONE ×2 (13:41→13:50)
[2018-12-05] MEDS ORDERED: TICAGRELOR 90 MG TAB PO ONE (13:41)
[2018-12-05] MEDS ORDERED: BIVALIRUDIN BOLUS 250 MG/50 ML IV ONE (13:43)
[2018-12-05] MEDS ORDERED: BIVALIRUDIN 250 MG in SODIUM CHLORIDE 0.9% 50 ML IV ONE ×2 (13:44→13:51)
[2018-12-05] MEDS ORDERED: IOPAMIDOL-370 125ML BTL INJ ONE (13:46)
[2018-12-05] MEDS ORDERED: hydrALAZINE HCL 20 MG/ML 1 ML VIAL ONE (13:57)
[2018-12-05] MEDS ORDERED: hydrALAZINE HCL 20 MG/ML 1 ML VIAL IV ONE (13:58)
[2018-12-05] MEDS ORDERED: IOPAMIDOL-370 100ML BTL INJ ONE (14:04)
[2018-12-05] MEDS ORDERED: NITROGLYCERIN SL TABS 0.4 MG TAB SUBLINGUAL PRN (14:06)
[2018-12-05] MEDS ORDERED: MAG HYDROX/AL HYDROX/SIMETH 30 ML CUP PO PRN (14:06)
[2018-12-05] MEDS ORDERED: RX INFO: IV CONTRAST WAS GIVEN 1 EACH MISC MISCELLANE PRN (14:06)
[2018-12-05] MEDS ORDERED: ATROPINE SULFATE 0.1 MG/ML 10ML SYRINGE IV PRN (14:06)
[2018-12-05] MEDS ORDERED: ZOLPIDEM 5 MG TAB PO PRN (14:06)
[2018-12-05] MEDS ORDERED: SODIUM CHLORIDE 0.9% 1,000 ML IV SCH (14:15)
--- NOTE | 2018-12-05 14:53 | CC ---
CARDIAC CATHETERIZATION REPORT Mrs. Lara is an 78-year-old female who was admitted with the symptoms of non ST- segment elevation myocardial infarction. In view of that, the patient was recommended to have a cardiac catheterization for definitive diagnosis. PROCEDURE: The right groin was prepped and draped in the usual manner and the skin was infiltrated with 2% Xylocaine. The right femoral artery was entered using Seldinger technique. A #6-Occitan sheath was placed in. Selective coronary angiography was then performed in multiple projections and the left ventricular pressures were obtained. Patient tolerated the procedure well. HEMODYNAMICS: Left ventricular end-diastolic pressure is 12 to 14 mmHg prior to angiography. No gradient is noted across the aortic valve. SELECTIVE CORONARY ANGIOGRAPHY: Left main coronary artery is normal and patent. LAD lad is a good caliber blood vessel and the stent in the proximal LAD is patent. The distal age of the stent has about 50% stenosis. Circumflex coronary artery is a good caliber blood vessel and proximal circumflex coronary artery is diffusely disease with 2 areas of focal stenosis of 90% right coronary artery mildly diffusely disease. PDA branch which is a small caliber blood vessel has about 50% stenosis. RECOMMENDATIONS: We will review the film with Dr. Carvalho. Consider stent to the circumflex and possible FFR to the distal LAD. MMODL / IJN: [id number] /
[2018-12-05] MEDS ORDERED: METOCLOPRAMIDE 5 MG/ML 2 ML VIAL IVP PRN (15:04)
[2018-12-05] MEDS ORDERED: ONDANSETRON 4 MG/2 ML VIAL IVP PRN (15:06)
--- NOTE | 2018-12-05 16:40 | P.PN ---
Subjective Patient admitted for non-STEMI. Patient reported intermittent retrosternal chest pains with radiation to the left arm for the last couple weeks. Sound was accompanied by shortness of breath and decreased exercise tolerance. Some of this attacks of the pain became more frequent over the last few days and will particular bothers him on the day of admission. She stated that pain would last a few minutes and then resolve on its own. She will get pains with exertion or at rest. In the emergency department EKG did not show any significant acute abnormalities. Chest x-ray was unremarkable. Her troponin was elevated at 0.5. Patient was started on aspirin and heparin drip and admitted for further evaluation. This morning she is chest pain-free but quite anxious regarding on calming cardiac catheterization. She didn't have any shortness of breath nausea or vomiting currently. Been quite elevated. She denies any history of smoking or any family history of heart attacks. She does not have any regular follow-up this with a physician. She does not take any home medication is any medical problems. Interval history: Patient was seen and examined today in the room. She denies any chest pain nausea vomiting shortness of breath or any discomfort. Her blood pressure was still elevated last night but then slowly improving with medications orders. REVIEW OF SYSTEMS: CONSTITUTIONAL: No fever or chills HEENT: No changes in vision or voice CARDIOVASCULAR: no chest pain or abnormal heart beats, or any swelling in ankles or feet. RESPIRATORY: No wheezing or coughing. GASTROINTESTINAL: No abdominal pain, no nausea no vomiting no constipation or diarrhea GENITOURINARY: no any urinary urgency, frequency or burning, and there has been no blood in her urine. no flank pain. MUSCULOSKELETAL: She notes full range of motion of all her joints without pain or swelling. NEUROLOGICAL: , no headache. no vision changes, or fainting. No numbness or tingling. Objective - Vital Signs Vital signs: Vital Signs Temp 96.8 F L 12/05/18 16:15 Pulse 57 L 12/05/18 16:15 Resp 16 12/05/18 16:15 BP 158/67 12/05/18 16:15 Pulse Ox 99 12/05/18 15:45 Intake & Output 12/04/18 12/05/18 12/05/18 18:59 06:59 18:59 Intake Total 372.241 86 166 Balance 372.241 86 166 Weight 94.4 kg Intake: IV 166 Bivalirudin 250 mg In 50 Sodium Chloride 0.9% 50 ml @ 0 mls/hr IV .[facility] Rx#:[id number] Intake, IV Titration 132.241 86 Amount Heparin Sod,Pork in 0.45% 132.241 NaCl 25,000 unit In 0.45 % NaCl 1 250ml.bag @ 11. 604 UNITS/KG/HR 10 mls/hr IV .Q24H [facility] Rx#: [id number] Sodium Chloride 0.9% 1, 86 000 ml In Empty Bag 1 bag @ 1 ML/KG/HR 86.18 mls/ hr IV .[id number] Rx#: [id number] Oral 240 Other: Voiding Method Toilet Toilet # Voids 1 2 - Exam Vital Signs: I have reviewed the vital signs. GENERAL: Well-nourished, Well-developed , no apparent distress, cooperative Eyes: PERRL, extraoculry movements intact, clear conjunctiva Head: : Atraumatic external nose and ears, oropharyngeal mucosa is moist without lesions or exudates Neck: Symmetric, trachea midline, No thyromegaly, no masses or neck vain pulsation, no neck rigidity CVS: +S1/S2, No murmurs or gallops. Peripheral pulses 2+ and equal in all extremities. RESP: Unlabored respiratory effort. Clear to auscultation bilaterally. Abdomen: Bowel sounds present in all 4 quadrants, Soft to palpation, Nontender/ Nondistended, No hepatosplenomegaly, no hernias or masses, no CVA tnderness Musculoskeletal: Extremities w/o deformity, No cyanosis or clubbing, no joint swelling Skin: Warm, Dry. No rashes or lesions Neuro: manager in training II-XII grossly intact, motor strenght 5/5 i upper and lower extremities, no clonus, patellar DTRs 2+ and sympetrical Psych: Awake, Alert, & Oriented (AAO) x3 Appropriate mood and affect - Labs CBC & Chem 7: 12/05/18 05:44 12/03/18 16:55 Labs: Abnormal Lab Results - Last 24 Hours (Table) 12/05/18 Range/Units 05:44 APTT 70.8 H (22.0-30.0) sec Assessment and Plan Assessment: 1. Non-STEMI Patient have cardiac catheterization today showing stenosis in circumflex artery and will be evaluated for stent insertion Continue aspirin, heparin, statin, beta jose Blood pressure control 2. Hypertensive urgency Present on admission Started on Lopressor and Cozaar So far responding to this medication hydralazine orally when necessary
[2018-12-05] MEDS: TICAGRELOR 90 MG TAB PO SCH (20:13)
[2018-12-05] MEDS ORDERED: ATORVASTATIN 40 MG TAB PO SCH (21:00)
[2018-12-06 00:03] VITALS: TEMP 97.6
[2018-12-06] MEDS: hydrALAZINE HCL 20 MG/ML 1 ML VIAL IVP PRN (04:28)
[2018-12-06 07:32] LABS: Basophils % (A) 0 %; Eosinophils # (A) 0.1 k/uL (0-0.7); Eosinophils % (A) 0 %; HCT 41.5 % (34.0-46.0); HGB 13.2 gm/dL (11.4-16.0); Lymphocytes % (A) 18 %; MCH 29.7 pg (25.0-35.0); MCHC 31.9 g/dL (31.0-37.0); Mean Platelet Volume 8.2; Monocytes # (A) 0.4 k/uL (0-1.0); Monocytes % (A) 4 %; Neutrophils # (A) 8.5 k/uL (1.3-7.7); Neutrophils % (A) 76 %; Platelet Count 177 k/uL (150-450); RBC 4.46 m/uL (3.80-5.40); RDW 13.8 % (11.5-15.5); WBC 11.1 k/uL (3.8-10.6)
[2018-12-06 08:00] LABS: Anion Gap 9 mmol/L; Blood Urea Nitrogen 13 mg/dL (7-17); Calcium 9.3 mg/dL (8.4-10.2); Carbon Dioxide 23 mmol/L (22-30); Chloride 107 mmol/L (98-107); Glucose 127 mg/dL (74-99); Sodium 139 mmol/L (137-145)
--- NOTE | 2018-12-06 08:43 | P.PN ---
Subjective Patient admitted for non-STEMI. Patient reported intermittent retrosternal chest pains with radiation to the left arm for the last couple weeks. Sound was accompanied by shortness of breath and decreased exercise tolerance. Some of this attacks of the pain became more frequent over the last few days and will particular bothers him on the day of admission. She stated that pain would last a few minutes and then resolve on its own. She will get pains with exertion or at rest. In the emergency department EKG did not show any significant acute abnormalities. Chest x-ray was unremarkable. Her troponin was elevated at 0.5. Patient was started on aspirin and heparin drip and admitted for further evaluation. She didn't have any shortness of breath nausea or vomiting currently. Been quite elevated. She denies any history of smoking or any family history of heart attacks. She does not have any regular follow-up this with a physician. She does not take any home medication is any medical problems. Interval history: Patient was seen and examined today in the room. She denies any chest pain nausea vomiting shortness of breath or any discomfort. Her blood pressure was still elevated last night but then slowly improving with medications orders. She underwent c cath yesterday REVIEW OF SYSTEMS: CONSTITUTIONAL: No fever or chills HEENT: No changes in vision or voice CARDIOVASCULAR: no chest pain or abnormal heart beats, or any swelling in ankles or feet. RESPIRATORY: No wheezing or coughing. GASTROINTESTINAL: No abdominal pain, no nausea no vomiting no constipation or diarrhea GENITOURINARY: no any urinary urgency, frequency or burning, and there has been no blood in her urine. no flank pain. MUSCULOSKELETAL: She notes full range of motion of all her joints without pain or swelling. NEUROLOGICAL: , no headache. no vision changes, or fainting. No numbness or tingling. Objective - Vital Signs Vital signs: Vital Signs Temp 97.6 F 12/06/18 04:00 Pulse 65 12/06/18 04:00 Resp 17 12/06/18 04:00 BP 150/60 12/06/18 06:21 Pulse Ox 96 12/06/18 07:47 Intake & Output 12/05/18 12/06/18 12/06/18 18:59 06:59 18:59 Intake Total 166 760 Output Total 500 Balance -334 760 Weight 93.9 kg Intake: IV 166 Bivalirudin 250 mg In 50 Sodium Chloride 0.9% 50 ml @ 0 mls/hr IV .[facility] Rx#:[id number] Oral 760 Output: Urine 500 Other: Voiding Method Toilet Toilet # Voids 1 1 - Exam Vital Signs: I have reviewed the vital signs. GENERAL: Well-nourished, Well-developed , no apparent distress, cooperative Eyes: PERRL, extraoculry movements intact, clear conjunctiva Head: : Atraumatic external nose and ears, oropharyngeal mucosa is moist without lesions or exudates Neck: Symmetric, trachea midline, No thyromegaly, no masses or neck vain pulsation, no neck rigidity CVS: +S1/S2, No murmurs or gallops. Peripheral pulses 2+ and equal in all extremities. RESP: Unlabored respiratory effort. Clear to auscultation bilaterally. Abdomen: Bowel sounds present in all 4 quadrants, Soft to palpation, Nontender/ Nondistended, No hepatosplenomegaly, no hernias or masses, no CVA tnderness Musculoskeletal: Extremities w/o deformity, No cyanosis or clubbing, no joint swelling Skin: Warm, Dry. No rashes or lesions Neuro: devops architect II-XII grossly intact, motor strenght 5/5 i upper and lower extremities, no clonus, patellar DTRs 2+ and sympetrical Psych: Awake, Alert, & Oriented (AAO) x3 Appropriate mood and affect - Labs CBC & Chem 7: 12/06/18 06:11 12/06/18 06:11 Labs: Abnormal Lab Results - Last 24 Hours (Table) 12/06/18 12/06/18 Range/Units 06:11 06:11 WBC 11.1 H (3.8-10.6) k/uL Neutrophils # 8.5 H (1.3-7.7) k/uL Glucose 127 H (74-99) mg/dL Assessment and Plan Assessment: 1. Non-STEMI Patient have cardiac catheterization yesterday showing stenosis in circumflex artery and will be evaluated for stent insertion Continue aspirin, heparin, statin, beta jose Blood pressure control 2. Hypertensive urgency Present on admission Started on Lopressor and Cozaar So far responding to these medication hydralazine orally when necessary
[2018-12-06] MEDS ORDERED: ASPIRIN 81 MG PO SCH (09:00)
[2018-12-06] MEDS: METOPROLOL TARTRATE 12.5 MG TAB PO SCH (09:46)
[2018-12-06] MEDS: TICAGRELOR 90 MG TAB PO SCH (09:46)
[2018-12-06] MEDS: LOSARTAN 50 MG TAB PO SCH (09:46)
--- NOTE | 2018-12-06 13:47 | P.PN ---
Subjective Progress Note Date: 12/06/18 This is an 78-year-old female with history of coronary artery disease and prior stent placement 15 years ago, she does have a history of hypertension and hyperlipidemia as well. Patient does not take any medications at home, she is not on a statin and not on an aspirin. She just takes Zyrtec when necessary. Patient was directed by Dr. Salamanca to come to the emergency room. She's been experiencing midsternal chest pressure and heaviness off and on. She just recently returned from a trip she was taking in [place], she states she had several episodes of chest discomfort while she was there and has been having symptoms for some time. Her EKG on arrival here showed a normal sinus rhythm with nonspecific ST-T wave changes in the anterior leads, with some mild ST depression noted in 1 and aVL. Her chest x-ray did not reveal any acute changes. White blood cell count 7.3, hemoglobin 15.1, platelet count 198. Sodium 143, potassium 3.7, BUN 15, creatinine 0.5. Magnesium 2.0. Troponin 0.59, 0.87, 0.50. Blood pressure earlier this morning 210/90, heart rate in the 50s, 99% on 2 L of oxygen. At the time of my examination her blood pressure was 158/66. Chest x-ray did not reveal any active cardiopulmonary disease. Patient was seen and examined in the emergency room, currently chest pain-free. 12/06/2018 Patient was taken to the cardiac catheterization lab yesterday underwent plasty and stenting of the circumflex artery. She was seen and examined this morning, denied any chest pain and breathing overall is stable. EKG shows normal sinus rhythm with no changes from post-PCI. Blood pressure 150/70, heart rate in the 50s, 95% on room air. Platelet count 177, BUN 13, creatinine 0.5. Objective - Vital Signs Vital signs: Vital Signs Temp 97.6 F 12/06/18 08:00 Pulse 52 L 12/06/18 10:00 Resp 17 12/06/18 10:00 BP 158/71 12/06/18 10:00 Pulse Ox 95 12/06/18 10:00 Intake & Output 12/05/18 12/06/18 12/06/18 18:59 06:59 18:59 Intake Total 166 760 618 Output Total 500 Balance -334 760 618 Weight 93.9 kg Intake: IV 166 Bivalirudin 250 mg In 50 Sodium Chloride 0.9% 50 ml @ 0 mls/hr IV .[employer] ONE Rx#:[id number] Oral 667 618 Output: Urine 500 Other: Voiding Method Toilet Toilet Toilet # Voids 1 1 2 - Exam PHYSICAL EXAMINATION: GENERAL: 78-year-old female in no acute distress at the time of my examination HEENT: Head is atraumatic, normocephalic. Pupils equal, round. Sclera anicteric. Conjunctiva are clear. Mucous membranes of the mouth are moist. Neck is supple. There is no elevated jugular venous pressure. No carotid bruit is heard. HEART EXAMINATION: Heart S1 S2 1 systolic murmur is heard. CHEST EXAMINATION: Lungs are clear to auscultation and precussion. No chest wall tenderness is noted on palpation or with deep breathing. ABDOMEN: Soft, nontender. Bowel sounds are heard. No organomegaly noted. Right groin soft, no evidence of any hematoma. EXTREMITIES: 2+ peripheral pulses with no evidence of peripheral edema and no calf tenderness noted. NEUROLOGIC patient is awake, alert and oriented 3 . - Labs CBC & Chem 7: 12/06/18 06:11 12/06/18 06:11 Labs: Abnormal Lab Results - Last 24 Hours (Table) 12/06/18 12/06/18 Range/Units 06:11 06:11 WBC 11.1 H (3.8-10.6) k/uL Neutrophils # 8.5 H (1.3-7.7) k/uL Glucose 127 H (74-99) mg/dL Assessment and Plan Plan: Assessment and plan #1 symptoms of midsternal chest pressure and heaviness, possible non-Q-wave myocardial infarction. Troponins 0.59, 0.87, 0.50. Shows normal sinus rhythm with nonspecific ST-T wave changes. #2 accelerated hypertension #3 history of hypertension, not on any blood pressure medications at home #4 hyperlipidemia, not on statins #5 known history of coronary artery disease with prior stent placement 15 years ago, not on aspirin at home. Plan Patient underwent anteroposterior and stenting of the circumflex artery. From cardiology's perspective, she may be able to be discharged home. Follow-up appointment in the office with Dr. Mendez. DNP note has been reviewed, I agree with a documented findings and plan of care. Patient was seen and examined.
[2018-12-06 14:02] VITALS: BMI 35.5
[2018-12-06 14:30] VITALS: BP 162/67; PULSE 55; RESP 16
--- NOTE | 2018-12-06 15:51 | P.DS ---
Providers Date of admission: 12/03/18 18:13 Attending physician: Barry Jones MD Consults: 12/03/18 18:13 Consult Physician Urgent Consulting Provider: Bayron Diaz Consult Reason/Comments: nstemi Do you want consulting provider notified?: Yes 12/05/18 14:06 Consult Physician Routine Consulting Provider: Amelia Romano Consult Reason/Comments: Post Interventional patient Do you want consulting provider notified?: Already Contacted Primary care physician: Nomi Naylor [place] Course: Date of admission: Date of discharge: 12/06/2018 Reason for admission chest pain Discharge diagnosis: 1. non-STEMI 2. Hypertensive urgency Procedure done on this admission: 1. Echocardiogram EF 55-60% No diastolic dysfunction Mild aortic sclerosis Mild mitral and tricuspid regurg Borderline pulmonary hypertension 2. Cardiac catheterization and PCI 90% stenosis in left circumflex artery status post drug-eluting stent insertion [facility] X Discharge medications: Aspirin Brilinta Lopressor Losartan Lipitor Reason for admission and Hospital course: This is a 16-year-old female who has history of coronary artery disease with remote history of PCI. She presented with retrosternal chest pain. She reported intermittent episodic pressure-like chest pain radiating to her left shoulder for the last one week prior to admission. On the day of admission pain was severe accompanied by diaphoresis and came to emergency department. EKG was nonacute. Troponins were elevated. She was admitted is a non-ST segment elevation [place] started on antiplatelets beta jose statin and heparin infusion Patient underwent cardiac catheterization found to have significant stenosis on the left circumflex artery and underwent drug-eluting stent insertion. She tolerated the procedure well. Also on admission she had elevated blood pressure and 183/90. She remained with elevated blood pressure and that she was started on blood pressure medication with subsequent improvement of her blood pressures. Disposition Patient was cleared to be discharged home by cardiology. Cardiology service provided prescription for her home medications. Patient was discharged home with family care. She is to follow-up with PCP for blood pressure checks. She will need BMP checked in 1 week. She is to follow-up with cardiology as ordered See my daily progress note for physical examination on the day of discharge in [id number] evaluation. 35 minutes spent on this discharge Patient Condition at Discharge: Fair Plan - Discharge Summary New Discharge Prescriptions: New Atorvastatin [Lipitor] 40 mg PO HS #30 tab Losartan [Cozaar] 100 mg PO DAILY #30 tab Metoprolol Tartrate [Lopressor] 12.5 mg PO BID #60 tab Nitroglycerin Sl Tabs [Nitrostat] 0.4 mg SUBLINGUAL Q5M PRN #253 tab PRN Reason: Chest Pain Ticagrelor [Brilinta] 90 mg PO BID #60 tab Continue Aspirin [Adult Low Dose Aspirin EC] 81 mg PO DAILY #30 tablet. Discontinued Cetirizine HCl [Zyrtec] 10 mg PO DAILY PRN PRN Reason: Allergy Symptoms Discharge Medication List Aspirin [Adult Low Dose Aspirin EC] 81 mg PO DAILY #30 tablet. 12/06/18 [Rx] Atorvastatin [Lipitor] 40 mg PO HS #30 tab 12/06/18 [Rx] Losartan [Cozaar] 100 mg PO DAILY #30 tab 12/06/18 [Rx] Metoprolol Tartrate [Lopressor] 12.5 mg PO BID #60 tab 12/06/18 [Rx] Nitroglycerin Sl Tabs [Nitrostat] 0.4 mg SUBLINGUAL Q5M PRN #253 tab 12/06/18 [ Rx] Ticagrelor [Brilinta] 90 mg PO BID #60 tab 12/06/18 [Rx] Follow up Appointment(s)/Referral(s): Meng Mendez MD [STAFF PHYSICIAN] - 2 Weeks Nomi Naylor MD [Primary Care Provider] - 12/12/18 11:00 am (Saturday) Patient Instructions/Handouts: Ticagrelor (By mouth), Chest Pain (ED) Activity/Diet/Wound Care/Special Instructions: pts 30 day copay for Brilinta is $43-free 30 day coupon given Discharge Disposition: HOME SELF-CARE
--- NOTE | 2018-12-12 13:59 | PTCA ---
PERCUTANEOUSTRANS CORORONARY ANGIOGRAPHY DATE OF SERVICE: 12/05/2018 PERFORMING PHYSICIAN: Brian Carvalho MD, mobile unit assistant. PROCEDURE PERFORMED: Successful stenting of the proximal left circumflex using a 3.5 x 18 mm Xience drug- eluting stent with reduction of stenosis from 99% to 0%. INDICATION: This is a pleasant 78-year-old female patient with known history of coronary artery disease and prior stenting of the LAD as well as multiple comorbid conditions, including hypertension and dyslipidemia, who presented to the hospital with chest discomfort. The patient underwent a heart catheterization by Dr. Ada Iqbal and was found to have patent stent in the mid LAD with critical disease involving the proximal left circumflex. Percutaneous coronary intervention was advised. APPROACH: Right common femoral artery. COMPLICATIONS: None. LEVEL OF SEDATION: Moderate with sedation length of 27 minutes. PROCEDURE DESCRIPTION: Please refer to diagnostic heart catheterization that was performed by Dr. Ada Iqbal. Anticoagulation was initiated using Angiomax. Subsequently I engaged the left main using an XP35 guide. A Whisper wire was used to wire the left circumflex. After that I did balloon angioplasty using a 3.0 x 12 mm balloon before I deployed a 3.5 x 18 mm Xience drug-eluting stent where the stent was positioned under fluoroscopy guidance and deployed under 16 atmospheres for 20 seconds. I post dilated the stent using a 4.0 mm balloon. The following angiogram showed excellent results and the procedure was completed without any complication. POST-PROCEDURE MANAGEMENT: 1. Dual anti-platelet therapy. 2. Risk factor modifications. 3. Follow up with the patient. MMODL / IJN: [id number] /
== END 2018-12-06 14:49 | disposition home or self-care (01) | DRG 247 ==
LOC: EC 15:55 → 3SCARD 18:13 → 2ORMAIN 12-04 09:16 → 3SCARD 12-04 14:25
PROVIDERS: ADMIT Hospitalist; ATTEND Hospitalist
PROC: B2111ZZ Fluoroscopy of Multiple Coronary Arteries using Low Osmolar Contrast (ICD-10-PCS; 2018-12-05)
PROC: 027034Z Dilation of Coronary Artery, One Artery with Drug-eluting Intraluminal Device, Percutaneous Approach (ICD-10-PCS; principal; 2018-12-05 12:50)
PROC: 4A023N7 Measurement of Cardiac Sampling and Pressure, Left Heart, Percutaneous Approach (ICD-10-PCS; 2018-12-05 12:50)
DX: I21.4 Non-ST elevation (NSTEMI) myocardial infarction (principal); I27.20 Pulmonary hypertension, unspecified; I08.3 Combined rheumatic disorders of mitral, aortic and tricuspid valves; R00.1 Bradycardia, unspecified; E78.5 Hyperlipidemia, unspecified; I10 Essential (primary) hypertension; I16.0 Hypertensive urgency; I25.10 Atherosclerotic heart disease of native coronary artery without angina pectoris; R32 Unspecified urinary incontinence; Z79.82 Long term (current) use of aspirin; Z88.5 Allergy status to narcotic agent; Z91.040 Latex allergy status; Z91.048 Other nonmedicinal substance allergy status; Z95.5 Presence of coronary angioplasty implant and graft
CPT/HCPCS: 36415; 71046; 80048; 80053; 80061; 82550; 82553; 83036; 83735; 84484; 85025; 85049; 85610; 85730; 93005; 93306; 93458; 96365; 96366; 96375; 96376; 99291; C1874

== ENCOUNTER 2019-04-10 09:38 | Emergency (ER) | payer MEDICARE ==
[2019-04-10 09:52] VITALS: BP 173/69; PULSE 47; RESP 18; TEMP 98.4
[2019-04-10] MEDS ORDERED: LIDOCAINE 1% INJ 10MG/ML (20 ML MDV) SQ ONE (10:18)
[2019-04-10] MEDS ORDERED: DIPH,PERTUS(ACELL)TETVAC-LF 0.5 ML VIAL IM ONE (10:18)
--- NOTE | 2019-04-10 10:51 | ED ---
Wound/Laceration HPI - General Chief Complaint: Wound/Laceration Stated Complaint: rt leg lac Time Seen by Provider: 04/10/19 09:58 Source: patient Mode of arrival: wheelchair Limitations: no limitations - History of Present Illness Initial Comments: 79-year-old male presented for right lower leg laceration. She states she is on a blood thinner and cut her leg on a lampshade. Patient denies fall injury to the upper extremity. Patient is unsure of her last tetanus. Patient denies any other areas of injury. Remaining review of system negative. Patient applied bandage and presented emergency department. Patient denies any recent fever, chills, shortness of breath, chest pain, back pain, abdominal pain, nausea or vomiting, numbness or tingling, dysuria or hematuria, constipation or diarrhea, headaches or visual changes, or any other complaints. - Related Data Previous Rx's Medication Instructions Recorded Aspirin [Adult Low Dose Aspirin EC] 81 mg PO DAILY #30 tablet. 12/06/18 Atorvastatin [Lipitor] 40 mg PO HS #30 tab 12/06/18 Losartan [Cozaar] 100 mg PO DAILY #30 tab 12/06/18 Metoprolol Tartrate [Lopressor] 12.5 mg PO BID #60 tab 12/06/18 Nitroglycerin Sl Tabs [Nitrostat] 0.4 mg SUBLINGUAL Q5M PRN #253 tab 12/06/18 Ticagrelor [Brilinta] 90 mg PO BID #60 tab 12/06/18 Allergies Allergy/AdvReac Type Severity Reaction Status Date / Time codeine Allergy Unknown Verified 04/10/19 09:52 Latex, Natural Rubber Allergy Itching Verified 04/10/19 09:52 Review of Systems ROS Statement: Those systems with pertinent positive or pertinent negative responses have been documented in the HPI. ROS Other: All systems not noted in ROS Statement are negative. Past Medical History Past Medical History: No Reported History History of Any Multi-Drug Resistant Organisms: None Reported Past Surgical History: Heart Catheterization With Stent, Tonsillectomy Date of Last Stent Placement:: 2003 Past Psychological History: No Psychological Hx Reported Smoking Status: Never smoker Past Alcohol Use History: Daily Past Drug Use History: None Reported - Past Family History Mother History Unknown: Yes General Exam - General Exam Comments Initial Comments: General: The patient is awake and alert, in no distress, and does not appear acutely ill. Eye: Pupils are equal, round and reactive to light, extra-ocular movements are intact. No nystagmus. There is normal conjunctiva bilaterally. No signs of icterus. Ears, nose, mouth and throat: There are moist mucous membranes and no oral lesions. Neck: The neck is supple, there is no tenderness or JVD. Cardiovascular: There is a regular rate and rhythm. No murmur, rub or gallop is appreciated. Respiratory: Lungs are clear to auscultation, respirations are non-labored, breath sounds are equal. No wheezes, stridor, rales, or rhonchi. Musculoskeletal: Normal ROM, no tenderness. Strength 5/5. Sensation intact. Pulses equal bilaterally 2+. Neurological: A&O x 3. CN II-XII intact, There are no obvious motor or sensory deficits. Coordination appears grossly intact. Speech is normal. Skin: Skin is warm and dry and no rashes. 4cm laceration of the right anterior parra exposure of underlying structure. Actively bleeding Psychiatric: Cooperative, appropriate mood & affect, normal judgment. Limitations: no limitations Course Vital Signs 04/10/19 09:49 Temperature 98.4 F Pulse Rate 47 L Respiratory 18 Rate Blood Pressure 173/69 O2 Sat by Pulse 98 Oximetry Procedures - Laceration Laceration #1 Consent Obtained: verbal consent Indication: laceration Site: lower extremity (right leg) Size (cm): 4 Description: linear Depth: simple, single layer Anesthetic Used: lidocaine 1% Anesthesia Technique: local infiltration Amount (mls): 5 Pre-repair: wound explored, irrigated extensively, deep structures intact Type of Sutures: nylon Size of Sutures: 4-0 Number of Sutures: 5 Technique: simple, interrupted Patient Tolerated Procedure: well, no complications Medical Decision Making - Medical Decision Making 79-year-old female presenting for laceration of the right lower extremity. Hemostasis was obtained after 5 sutures were placed. Pressure bandage in place. Area was extensively irrigated and explored prior to closure. Patient tolerate procedure well. No evidence of deeper underlying injury or FB. Tetanus is updated. Patient is not diabetic. At this time feel patient is stable for discharge with return for suture removal in 7 days. Return parameters including signs of infection were discussed the patient verbalizes understanding. Patient is discharged appearing well after discussing case with Dr. Guzman Disposition Clinical Impression: Laceration of right lower leg, Leg pain, anterior Disposition: HOME SELF-CARE Condition: Good Instructions (If sedation given, give patient instructions): Care For Your Stitches (ED), Laceration (ED) Additional Instructions: Please use topical medication as discussed. Please follow-up for suture removal in 7 days. Please return to emergency room if the symptoms increase or worsen or for any other concerns. Is patient prescribed a controlled substance at d/c from ED?: No Referrals: Nomi Naylor MD [Primary Care Provider] - 1-2 days Time of Disposition: 10:51
== END 2019-04-10 11:06 | disposition home or self-care (01) ==
LOC: EC 09:38
DX: S81.811A Laceration without foreign body, right lower leg, initial encounter (principal); Z95.5 Presence of coronary angioplasty implant and graft; Z88.5 Allergy status to narcotic agent; Z91.040 Latex allergy status; Z23 Encounter for immunization; W25.XXXA Contact with sharp glass, initial encounter; Y93.89 Activity, other specified
CPT/HCPCS: 90715; 99282; 12002; 90471; J2001

== ENCOUNTER 2019-10-10 16:17 | Inpatient (IN) | payer MEDICARE ==
[2019-10-10] MEDS ORDERED: ACETAMINOPHEN TAB 325 MG TAB PO STA (17:24)
[2019-10-10] MEDS ORDERED: SODIUM CHLORIDE 0.9% 1,000 ML IV ONE ×2 (17:24→19:03)
--- NOTE | 2019-10-10 17:28 | XR ---
EXAMINATION TYPE: XR chest 2V DATE OF EXAM: 10/10/2019 COMPARISON: December 03, 2018 HISTORY: Weakness TECHNIQUE: Frontal and lateral views of the chest are obtained. FINDINGS: Heart is normal. Lungs are clear of consolidation. There is minimal reticular interstitial density left upper lobe. There are no hilar masses. Costophrenic angles are clear. There are chest l faustino. Bony thorax appears intact. IMPRESSION: Minimal left upper lobe interstitial density could relate to scarring unchanged. Normal heart.
[2019-10-10 17:34] LABS: Basophils % (A) 0 %; Eosinophils % (A) 0 %; HCT 41.3 % (34.0-46.0); HGB 14.3 gm/dL (11.4-16.0); Lymphocytes # (A) 1.2 k/uL (1.0-4.8); Lymphocytes % (A) 8 %; MCH 31.3 pg (25.0-35.0); MCHC 34.6 g/dL (31.0-37.0); MCV 90.3 fL (80.0-100.0); Mean Platelet Volume 7.1; Monocytes # (A) 0.8 k/uL (0-1.0); Monocytes % (A) 5 %; Neutrophils # (A) 13.3 k/uL (1.3-7.7); Neutrophils % (A) 85 %; Platelet Count 177 k/uL (150-450); RBC 4.57 m/uL (3.80-5.40); RDW 13.6 % (11.5-15.5); WBC 15.6 k/uL (3.8-10.6)
[2019-10-10 17:43] LABS: Albumin 3.7 g/dL (3.5-5.0); Calcium 9.1 mg/dL (8.4-10.2); Partial Thromboplastin Time 28.1 sec (22.0-30.0); Potassium 4.4 mmol/L (3.5-5.1); Total Bilirubin 0.8 mg/dL (0.2-1.3); Total Protein 6.8 g/dL (6.3-8.2)
[2019-10-10] MEDS: SODIUM CHLORIDE 0.9% 1,000 ML IV SCH (17:45)
--- NOTE | 2019-10-10 18:58 | ED ---
Dizziness HPI - General Source: patient Mode of arrival: ambulatory Limitations: no limitations <Minerva Porter - Last Filed: 10/10/19 21:40> <Ghazala Castillo - Last Filed: 10/13/19 01:29> - General Chief Complaint: Dizziness Stated Complaint: Dizzy/nausea Time Seen by Provider: 10/10/19 16:27 - History of Present Illness Initial Comments: 79-year-old female with history of recent UTI, CAD with stent placement presents emergency department for chief complaint of generalized weakness, chills. Patient states for the past day she has had generalized weakness hot sweats and chills. She states yesterday she was still lightheaded brought driving that she had a fur puller. Patient denies any chest pain source of breath headache she denies any sensations of the room spinning or changes in balance. Patient S/P change in sensation deficits are neck pain. Patient denies abdominal pain diarrhea or vomiting, cough, URI symptoms. Patient states she has had profound nausea. Remaining review systems negative. Patient states she feels as though she has the flu. Upon arrival patient is febrile. Mild elevation of blood pressure heart rate within acceptable limits. (Minerva Porter) - Related Data Home Medications Medication Instructions Recorded Confirmed Cholecalciferol (Vitamin D3) 4,000 unit PO DAILY 10/10/19 10/10/19 [Vitamin D3] Clopidogrel Bisulfate [Plavix] 75 mg PO DAILY 10/10/19 10/10/19 Darifenacin Hydrobromide [Enablex] 15 mg PO DAILY 10/10/19 10/10/19 Magnesium(Unknown Dose) 1 tab PO DAILY 10/10/19 10/10/19 Metoprolol Tartrate [Lopressor] 12.5 mg PO BID 10/10/19 10/10/19 Previous Rx's Medication Instructions Recorded Aspirin [Adult Low Dose Aspirin EC] 81 mg PO DAILY #30 tablet. 12/06/18 Losartan [Cozaar] 100 mg PO DAILY #30 tab 12/06/18 Nitroglycerin Sl Tabs [Nitrostat] 0.4 mg SUBLINGUAL Q5M PRN #253 tab 12/06/18 Allergies Allergy/AdvReac Type Severity Reaction Status Date / Time codeine Allergy Unknown Verified 10/10/19 16:20 Latex, Natural Rubber Allergy Itching Verified 10/10/19 16:20 Review of Systems ROS Other: All systems not noted in ROS Statement are negative. <ArmandonoraMinerva - Last Filed: 10/10/19 21:40> ROS Other: All systems not noted in ROS Statement are negative. <Ghazala Castillo - Last Filed: 10/13/19 01:29> ROS Statement: Those systems with pertinent positive or pertinent negative responses have been documented in the HPI. Past Medical History Past Medical History: No Reported History, Hyperlipidemia History of Any Multi-Drug Resistant Organisms: None Reported Past Surgical History: Heart Catheterization With Stent, Tonsillectomy Date of Last Stent Placement:: 2003 Past Psychological History: No Psychological Hx Reported Smoking Status: Never smoker Past Alcohol Use History: Daily Past Drug Use History: None Reported - Past Family History Mother History Unknown: Yes <Minerva Porter - Last Filed: 10/10/19 21:40> General Exam Limitations: no limitations <Minerva Porter - Last Filed: 10/10/19 21:40> - General Exam Comments Initial Comments: General: The patient is awake and alert, in no distress Eye: +3 mm pupils are equal, round and reactive to light, extra-ocular movements are intact. No nystagmus. There is normal conjunctiva bilaterally. No signs of icterus. Ears, nose, mouth and throat: There are moist mucous membranes and no oral lesions. Neck: The neck is supple, there is no tenderness or JVD. Cardiovascular: There is a regular rate and rhythm. No murmur, rub or gallop is appreciated. Respiratory: Lungs are clear to auscultation, respirations are non-labored, breath sounds are equal. No wheezes, stridor, rales, or rhonchi. Gastrointestinal: Soft, non-distended, non-tender abdomen without masses or organomegaly noted. There is no rebound or guarding present. Musculoskeletal: Normal ROM, no tenderness. Strength 5/5. Sensation intact. Radial pulses equal bilaterally 2+. Neurological: A&O x 3. CN II-XII intact grossly, There are no obvious motor or sensory deficits. Coordination appears grossly intact. Speech is normal. Skin: Skin is warm and dry and no rashes or lesions are noted. No LE edema. Psychiatric: Cooperative, appropriate mood & affect, normal judgment. (Minerva Porter) Course Vital Signs 10/10/19 10/10/19 10/10/19 16:20 17:32 19:02 Temperature 99.2 F 100.3 F H 98.9 F Pulse Rate 70 57 L Respiratory 18 18 Rate Blood Pressure 160/61 141/56 O2 Sat by Pulse 92 L 97 Oximetry EKG Findings - EKG Comments: EKG Findings:: Ventricular rate 67 bpm, MT interval 154 ms, QRS episcopalian 72 ms, QT/QTC 360/380 ms. Normal sinus. There is left axis noted. No ST elevation or depression. EKG was percent interpreted and reviewed by attending provider <Minerva Porter - Last Filed: 10/10/19 21:40> Medical Decision Making - Lab Data Result diagrams: 10/10/19 16:45 10/10/19 16:45 <Minerva Porter - Last Filed: 10/10/19 21:40> - Lab Data Result diagrams: 10/12/19 07:41 10/12/19 07:41 <Ghazala Castillo - Last Filed: 10/13/19 01:29> - Medical Decision Making 79-year-old female presents emergency department for chief complaint of general on normal feeling generalized weakness. Recent urinary UTI with 3 days antibiotics approx 7-10 days ago. Patient febrile on arrival. Denies any chest pain shortness of breath chest pressure. Patient admits to nausea. Denies flan k or abdominal pain. Urinalysis consistent with significant urinary tract infection with hematuria. Patient has leukocytosis. However hemodynamically stable. Patient was given Rocephin the emergency department. As well as IV fluids. Lactic acid within normal limits. Patient does not appear overtly toxic. Patient will be admitted I spoke with the admitting provider Dr. Perez as well as my attending provider Dr. Castillo who are agreeable to admission at this time. Patient agreeable to admission. (Minerva Porter) I was available for consultation in the emergency department. The history and physical exam were done by the midlevel provider. I was consulted for this patients care. I reviewed the case with the midlevel provider and based on their presentation of the patient, I agree with the assessment, medical decision making and plan of care as documented. Chart was dictated using [employer] dictation software. Attempts were made to correct any dictation errors however some typographical errors may persist. (Ghazala Castillo) - Lab Data Lab Results 10/10/19 10/10/19 10/10/19 Range/Units 16:45 16:45 16:45 WBC 15.6 H (3.8-10.6) k/uL RBC 4.57 (3.80-5.40) m/uL Hgb 14.3 (11.4-16.0) gm/dL Hct 41.3 (34.0-46.0) % MCV 90.3 (80.0-100.0) fL MCH 31.3 (25.0-35.0) pg MCHC 34.6 (31.0-37.0) g/dL RDW 13.6 (11.5-15.5) % Plt Count 177 (150-450) k/uL Neutrophils % 85 % Lymphocytes % 8 % Monocytes % 5 % Eosinophils % 0 % Basophils % 0 % Neutrophils # 13.3 H (1.3-7.7) k/uL Lymphocytes # 1.2 (1.0-4.8) k/uL Monocytes # 0.8 (0-1.0) k/uL Eosinophils # 0.0 (0-0.7) k/uL Basophils # 0.0 (0-0.2) k/uL PT (9.0-12.0) sec INR (<1.2) APTT (22.0-30.0) sec Sodium 133 L (137-145) mmol/L Potassium 4.4 (3.5-5.1) mmol/L Chloride 100 (98-107) mmol/L Carbon Dioxide 26 (22-30) mmol/L Anion Gap 7 mmol/L BUN 16 (7-17) mg/dL Creatinine 0.81 (0.52-1.04) mg/dL Est GFR (CKD-EPI)AfAm 79 (>60 ml/min/1.73 sqM) Est GFR (CKD-EPI)NonAf 69 (>60 ml/min/1.73 sqM) Glucose 157 H (74-99) mg/dL Plasma Lactic Acid Nick 1.1 (0.7-2.0) mmol/L Calcium 9.1 (8.4-10.2) mg/dL Total Bilirubin 0.8 (0.2-1.3) mg/dL AST 20 (14-36) U/L ALT 18 (9-52) U/L Alkaline Phosphatase 72 (38-126) U/L Troponin I (0.000-0.034) ng/mL Total Protein 6.8 (6.3-8.2) g/dL Albumin 3.7 (3.5-5.0) g/dL Urine Color Urine Appearance (Clear) Urine pH (5.0-8.0) Ur Specific [place] (1.001-1.035) Urine Protein (Negative) Urine Glucose (UA) (Negative) Urine Ketones (Negative) Urine Blood (Negative) Urine Nitrite (Negative) Urine Bilirubin (Negative) Urine Urobilinogen (<2.0) mg/dL Ur Leukocyte Esterase (Negative) Urine RBC (0-5) /hpf Urine WBC (0-5) /hpf Ur Squamous Epith Cells (0-4) /hpf Urine Mucus (None) /hpf Influenza Type A RNA (Not Detectd) Influenza Type B (PCR) (Not Detectd) 10/10/19 10/10/19 10/10/19 Range/Units 16:45 16:45 17:25 WBC (3.8-10.6) k/uL RBC (3.80-5.40) m/uL Hgb (11.4-16.0) gm/dL Hct (34.0-46.0) % MCV (80.0-100.0) fL MCH (25.0-35.0) pg MCHC (31.0-37.0) g/dL RDW (11.5-15.5) % Plt Count (150-450) k/uL Neutrophils % % Lymphocytes % % Monocytes % % Eosinophils % % Basophils % % Neutrophils # (1.3-7.7) k/uL Lymphocytes # (1.0-4.8) k/uL Monocytes # (0-1.0) k/uL Eosinophils # (0-0.7) k/uL Basophils # (0-0.2) k/uL PT 11.0 (9.0-12.0) sec INR 1.0 (<1.2) APTT 28.1 (22.0-30.0) sec Sodium (137-145) mmol/L Potassium (3.5-5.1) mmol/L Chloride (98-107) mmol/L Carbon Dioxide (22-30) mmol/L Anion Gap mmol/L BUN (7-17) mg/dL Creatinine (0.52-1.04) mg/dL Est GFR (CKD-EPI)AfAm (>60 ml/min/1.73 sqM) Est GFR (CKD-EPI)NonAf (>60 ml/min/1.73 sqM) Glucose (74-99) mg/dL Plasma Lactic Acid Nick (0.7-2.0) mmol/L Calcium (8.4-10.2) mg/dL Total Bilirubin (0.2-1.3) mg/dL AST (14-36) U/L ALT (9-52) U/L Alkaline Phosphatase (38-126) U/L Troponin I 0.013 (0.000-0.034) ng/mL Total Protein (6.3-8.2) g/dL Albumin (3.5-5.0) g/dL Urine Color Urine Appearance (Clear) Urine pH (5.0-8.0) Ur Specific [place] (1.001-1.035) Urine Protein (Negative) Urine Glucose (UA) (Negative) Urine Ketones (Negative) Urine Blood (Negative) Urine Nitrite (Negative) Urine Bilirubin (Negative) Urine Urobilinogen (<2.0) mg/dL Ur Leukocyte Esterase (Negative) Urine RBC (0-5) /hpf Urine WBC (0-5) /hpf Ur Squamous Epith Cells (0-4) /hpf Urine Mucus (None) /hpf Influenza Type A RNA Not Detected (Not Detectd) Influenza Type B (PCR) Not Detected (Not Detectd) 10/10/19 10/11/19 10/11/19 Range/Units 18:40 08:04 08:04 WBC 18.3 H (3.8-10.6) k/uL RBC 4.54 (3.80-5.40) m/uL Hgb 13.7 (11.4-16.0) gm/dL Hct 42.2 (34.0-46.0) % MCV 93.0 (80.0-100.0) fL MCH 30.2 (25.0-35.0) pg MCHC 32.5 (31.0-37.0) g/dL RDW 13.7 (11.5-15.5) % Plt Count 164 (150-450) k/uL Neutrophils % 82 % Lymphocytes % 12 % Monocytes % 5 % Eosinophils % 0 % Basophils % 1 % Neutrophils # 14.9 H (1.3-7.7) k/uL Lymphocytes # 2.2 (1.0-4.8) k/uL Monocytes # 0.8 (0-1.0) k/uL Eosinophils # 0.0 (0-0.7) k/uL Basophils # 0.1 (0-0.2) k/uL PT (9.0-12.0) sec INR (<1.2) APTT (22.0-30.0) sec Sodium 136 L (137-145) mmol/L Potassium 4.7 (3.5-5.1) mmol/L Chloride 103 (98-107) mmol/L Carbon Dioxide 24 (22-30) mmol/L Anion Gap 9 mmol/L BUN 15 (7-17) mg/dL Creatinine 0.81 (0.52-1.04) mg/dL Est GFR (CKD-EPI)AfAm 79 (>60 ml/min/1.73 sqM) Est GFR (CKD-EPI)NonAf 69 (>60 ml/min/1.73 sqM) Glucose 148 H (74-99) mg/dL Plasma Lactic Acid Nick (0.7-2.0) mmol/L Calcium 8.9 (8.4-10.2) mg/dL Total Bilirubin (0.2-1.3) mg/dL AST (14-36) U/L ALT (9-52) U/L Alkaline Phosphatase (38-126) U/L Troponin I (0.000-0.034) ng/mL Total Protein (6.3-8.2) g/dL Albumin (3.5-5.0) g/dL Urine Color Light Red Urine Appearance Cloudy H (Clear) Urine pH 6.5 (5.0-8.0) Ur Specific [place] 1.016 (1.001-1.035) Urine Protein 1+ H (Negative) Urine Glucose (UA) Negative (Negative) Urine Ketones Negative (Negative) Urine Blood Large H (Negative) Urine Nitrite Positive H (Negative) Urine Bilirubin Negative (Negative) Urine Urobilinogen <2.0 (<2.0) mg/dL Ur Leukocyte Esterase Large H (Negative) Urine RBC >182 H (0-5) /hpf Urine WBC >182 H (0-5) /hpf Ur Squamous Epith Cells 2 (0-4) /hpf Urine Mucus Rare H (None) /hpf Influenza Type A RNA (Not Detectd) Influenza Type B (PCR) (Not Detectd) Disposition Is patient prescribed a controlled substance at d/c from ED?: No Time of Disposition: 19:17 Decision to Admit Reason: Admit from EC Decision Date: 10/10/19 Decision Time: 19:17 <Minerva Porter - Last Filed: 10/10/19 21:40> <Ghazala Castillo - Last Filed: 10/13/19 01:29> Clinical Impression: Nausea, UTI (urinary tract infection), Fever, Leukocytosis, Generalized weakness, Hematuria Disposition: ADMITTED IP TO THIS HOSP Condition: Stable
[2019-10-10 19:00] LABS: Appearance,Urine Cloudy (Clear); Bilirubin,Urine Negative (Negative); Blood,Urine Large (Negative); Color,Urine Light Red; Glucose,Urine (UA) Negative (Negative); Ketones,Urine Negative (Negative); Leukocyte Esterase,Urine Large (Negative); Mucus,Urine Rare /hpf; Nitrite,Urine Positive (Negative); PH, Urine 6.5 (5.0-8.0); Protein,Urine 1+ (Negative); RBC,Urine >182 /hpf (0-5); Specific Gravity,Urine 1.016 (1.001-1.035); Squamous Epithelial Cell,Urine 2 /hpf (0-4); Urobilinogen,Urine <2.0 mg/dL (<2.0); WBC,Urine >182 /hpf (0-5)
[2019-10-10] MEDS ORDERED: ACETAMINOPHEN TAB 325 MG TAB PO PRN (19:17)
[2019-10-10] MEDS ORDERED: NALOXONE 0.4 MG/ML 1 ML VIAL IV PRN (19:17)
[2019-10-10] MEDS: METOPROLOL TARTRATE 25 MG TAB PO SCH ×2 (22:41→23:01)
[2019-10-10] MEDS: HEPARIN SODIUM,PORCINE 5,000 UNIT/ML 1 ML VIAL SQ SCH (23:01)
--- NOTE | 2019-10-10 23:56 | P.HPIM ---
History of Present Illness H&P Date: 10/10/19 Chief Complaint: generalized weakness 79-year-old female with history of hypertension and coronary artery disease Patient comes in today with generalized weakness and not feeling well along with chills and hematuria. Patient denies any abdominal pain denies any dysuria bernadine quent urination or nocturia. However she does report that she was diagnosed with urinary tract infection about a week ago received 3 days of antibiotics patient however admits that she is not compliant with her medications. She doesn't take any of her medications as they make her feel sick she is only compliant to aspirin and Plavix. She would take one of her blood pressure medications couple times a month. Otherwise she denies any headache changes in vision or hearing denies any chest pain or trouble breathing denies any slurred speech denies any focal neuro deficits. Denies any abdominal pain or changes in her bowel habits denies any GI bleeding Patient is independent she continues to drive. 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 All other systems were reviewed and are negative Past Medical History Past Medical History: No Reported History, Hyperlipidemia History of Any Multi-Drug Resistant Organisms: None Reported Past Surgical History: Heart Catheterization With Stent, Tonsillectomy Date of Last Stent Placement:: 2003 Past Psychological History: No Psychological Hx Reported Smoking Status: Never smoker Past Alcohol Use History: Daily Past Drug Use History: None Reported - Past Family History Mother History Unknown: Yes Medications and Allergies Home Medications Medication Instructions Recorded Confirmed Type Aspirin [Adult Low Dose Aspirin EC] 81 mg PO DAILY #30 tablet. 12/06/18 10/10/19 Rx Losartan [Cozaar] 100 mg PO DAILY #30 tab 12/06/18 10/10/19 Rx Nitroglycerin Sl Tabs [Nitrostat] 0.4 mg SUBLINGUAL Q5M PRN #253 tab 12/06/18 10/10/19 Rx Cholecalciferol (Vitamin D3) 4,000 unit PO DAILY 10/10/19 10/10/19 History [Vitamin D3] Clopidogrel Bisulfate [Plavix] 75 mg PO DAILY 10/10/19 10/10/19 History Darifenacin Hydrobromide [Enablex] 15 mg PO DAILY 10/10/19 10/10/19 History Magnesium(Unknown Dose) 1 tab PO DAILY 10/10/19 10/10/19 History Metoprolol Tartrate [Lopressor] 12.5 mg PO BID 10/10/19 10/10/19 History Allergies Allergy/AdvReac Type Severity Reaction Status Date / Time codeine Allergy Unknown Verified 10/10/19 16:20 Latex, Natural Rubber Allergy Itching Verified 10/10/19 16:20 Physical Exam Vitals: Vital Signs Temp Pulse Resp BP Pulse Ox 10/10/19 19:02 98.9 F 57 L 18 141/56 97 10/10/19 17:32 100.3 F H 10/10/19 16:20 99.2 F 70 18 160/61 92 L Intake and Output 10/10/19 10/10/19 10/10/19 06:59 14:59 22:59 Other: Weight 86.183 kg Constitutional: No acute distress, conversant, pleasant Eyes: Anicteric sclerae, moist conjunctiva, no lid-lag Pupils equal round reactive to light ENMT: NC/AT Oropharynx clear, no erythema, exudates Neck: Supple, FROM, no masses, or JVD No carotid bruits No thyromegaly Lungs: Clear to auscultation Clear to percussion Normal respiratory effort, no accessory muscle use Cardiovascular: Heart regular in rate and rhythm, Systolic murmur, no gallops, or rubs No peripheral edema Abdominal: Soft Nontender, no guarding, rebound or rigidity Abdomen moving with respiration Normoactive bowel sounds No hepatomegaly, No splenomegaly No palpable mass No abdominal wall hernia noted Skin: Normal temperature, tone, texture, turgor No induration No subcutaneous nodules No rash, lesions No ulcers Extremities: No digital cyanosis No clubbing Pedal pulses intact and symmetrical Radial pulses intact and symmetrical No calf tenderness Psychiatric: Alert and oriented to person, place and time Appropriate affect fair judgement Neuro Muscles Strength 5/5 in all 4 extremities Sensation to light touch grossly present throughout Cranial nerves II-XII grossly intact No focal sensory deficits Lymphatics: no palpable cervical or supraclavicular , or inguinal lymph n odes Results CBC & Chem 7: 10/10/19 16:45 10/10/19 16:45 Labs: Abnormal Lab Results - Last 24 Hours (Table) 10/10/19 10/10/19 10/10/19 Range/Units 16:45 16:45 18:40 WBC 15.6 H (3.8-10.6) k/uL Neutrophils # 13.3 H (1.3-7.7) k/uL Sodium 133 L (137-145) mmol/L Glucose 157 H (74-99) mg/dL Urine Appearance Cloudy H (Clear) Urine Protein 1+ H (Negative) Urine Blood Large H (Negative) Urine Nitrite Positive H (Negative) Ur Leukocyte Esterase Large H (Negative) Urine RBC >182 H (0-5) /hpf Urine WBC >182 H (0-5) /hpf Urine Mucus Rare H (None) /hpf Thrombosis Risk Factor Assmnt - Choose All That Apply Any of the Below Risk Factors Present?: Yes Each Factor Represents 1 point: Obesity (BMI >25) Other Risk Factors: Yes Each Risk Factor Represents 3 Points: Age 75 years or older Thrombosis Risk Factor Assessment Total Risk Factor Score: 4 Thrombosis Risk Factor Assessment Level: Moderate Risk Assessment and Plan Assessment: 79-year-old female with history of hypertension and coronary artery disease Presented with generalized weakness found to have urinary tract infection and le ukocytosis and fever admitted for treatment of UTI Patient also found to have elevated blood pressure asymptomatic otherwise patient admits to not taking any of her blood pressure medications on regular basis at home Admitted as inpatient with anticipated length of stay more than 2 midnights Plan: UTI Follow-up cultures Rocephin daily Symptomatic control IV fluid hydration Hypertensive urgency, noncompliance with medications Patient is not taking any of her blood pressure medications Restart losartan and follow-up closely History of CAD Continue with aspirin Plavix Continue statin DVT prophylaxis heparin subcu 3 times a day CODE STATUS full code Discussed with: Patient, ER, RN Anticipated length of stay more than [address]: Home A total of 60 minutes was spent on the care of this complex patient more than 50% of the time was spent in counseling and care coordination.
[2019-10-11] MEDS: LOSARTAN 50 MG TAB PO SCH ×2 (00:33→08:12)
[2019-10-11] MEDS: SODIUM CHLORIDE 0.9% 1,000 ML IV SCH ×2 (03:12→12:00)
[2019-10-11] MEDS: HEPARIN SODIUM,PORCINE 5,000 UNIT/ML 1 ML VIAL SQ SCH ×2 (08:12→17:30)
[2019-10-11] MEDS: CLOPIDOGREL 75 MG TAB PO SCH (08:12)
[2019-10-11] MEDS: ASPIRIN 81 MG PO SCH (08:12)
[2019-10-11 08:46] LABS: Basophils # (A) 0.1 k/uL (0-0.2); Basophils % (A) 1 %; Eosinophils % (A) 0 %; HCT 42.2 % (34.0-46.0); HGB 13.7 gm/dL (11.4-16.0); Lymphocytes # (A) 2.2 k/uL (1.0-4.8); Lymphocytes % (A) 12 %; MCH 30.2 pg (25.0-35.0); MCHC 32.5 g/dL (31.0-37.0); Mean Platelet Volume 7.4; Monocytes # (A) 0.8 k/uL (0-1.0); Monocytes % (A) 5 %; Neutrophils # (A) 14.9 k/uL (1.3-7.7); Neutrophils % (A) 82 %; Platelet Count 164 k/uL (150-450); RBC 4.54 m/uL (3.80-5.40); RDW 13.7 % (11.5-15.5); WBC 18.3 k/uL (3.8-10.6)
[2019-10-11 08:55] LABS: Calcium 8.9 mg/dL (8.4-10.2); Potassium 4.7 mmol/L (3.5-5.1)
[2019-10-11] MEDS ORDERED: LOSARTAN 50 MG TAB PO SCH (09:00)
[2019-10-11] MEDS ORDERED: TROSPIUM CHLORIDE 20 MG TABLET PO SCH (09:00)
--- NOTE | 2019-10-11 15:06 | P.PN ---
Subjective Progress Note Date: 10/11/19 (delayed charting seen at 1110) Principal diagnosis: fatigue Patient is an 79-year-old female with a past medical history of hypertension, coronary artery disease, and dyslipidemia who initially presented to the emergency department with complaints of generalized weakness, chills, and hematuria. In the ER she underwent an extensive evaluation. On arrival her vital signs are within normal limits. She then spiked a fever of 100.3. Initial laboratory analysis showed white blood cell count of 15.6, sodium 133, glucose of 157, influenza negative, and urinalysis was consistent with urinary tract infection. She was admitted for urinary tract infection with sepsis. She was started on Rocephin and IV fluids. On the morning of 10/11 her blood cultures came back positive for E. coli. Her white blood cell count had also increased to 18,000. Patient seen and examined at bedside. She is feeling slightly less fatigued than yesterday. She denies any nausea, vomiting, shortness of breath, chest pain, or loose stools. We discussed the results of her laboratory analysis and holding her medication for urinary frequency and she is in agreement. We also discussed need for continued hospitalization. Family present at bedside and all questions answered. Objective - Vital Signs Vital signs: Vital Signs Temp 99.0 F 10/11/19 06:17 Pulse 64 10/11/19 06:17 Resp 24 10/11/19 06:17 BP 125/69 10/11/19 06:17 Pulse Ox 95 10/11/19 06:17 Intake & Output 10/10/19 10/11/19 10/11/19 18:59 06:59 18:59 Intake Total 150 Balance 150 Weight 86.183 kg Intake: Oral 150 Other: Voiding Method Toilet Incontinent # Voids 2 - Exam General: Ill appearing, no distress, appears at stated age, obese Derm: warm, dry Head: atraumatic, normocephalic, symmetric Eyes: EOMI, no lid lag, anicteric sclera Mouth: no lip lesion, mucus membranes moist Cardiovascular: S1S2 reg, no murmur, positive posterior tibial pulse bilateral, Lungs: Decreased breath sounds bilateral, no rhonchi, no rales , no accessory muscle use Abdominal: soft, nontender to palpation, no guarding, no appreciable organomegaly Ext: no gross muscle atrophy, no edema, no contractures Neuro: CN II-XI grossly intact, no focal neuro deficits Psych: Alert, oriented, appropriate affect - Labs CBC & Chem 7: 10/11/19 08:04 10/11/19 08:04 Labs: Abnormal Lab Results - Last 24 Hours (Table) 10/10/19 10/10/19 10/10/19 Range/Units 16:45 16:45 18:40 WBC 15.6 H (3.8-10.6) k/uL Neutrophils # 13.3 H (1.3-7.7) k/uL Sodium 133 L (137-145) mmol/L Glucose 157 H (74-99) mg/dL Urine Appearance Cloudy H (Clear) Urine Protein 1+ H (Negative) Urine Blood Large H (Negative) Urine Nitrite Positive H (Negative) Ur Leukocyte Esterase Large H (Negative) Urine RBC >182 H (0-5) /hpf Urine WBC >182 H (0-5) /hpf Urine Mucus Rare H (None) /hpf 10/11/19 10/11/19 Range/Units 08:04 08:04 WBC 18.3 H (3.8-10.6) k/uL Neutrophils # 14.9 H (1.3-7.7) k/uL Sodium 136 L (137-145) mmol/L Glucose 148 H (74-99) mg/dL Urine Appearance (Clear) Urine Protein (Negative) Urine Blood (Negative) Urine Nitrite (Negative) Ur Leukocyte Esterase (Negative) Urine RBC (0-5) /hpf Urine WBC (0-5) /hpf Urine Mucus (None) /hpf Microbiology - Last 24 Hours (Table) 10/10/19 17:30 Blood Culture Gram Stain - Preliminary Blood Blood Culture - Preliminary Escherichia coli 10/10/19 18:50 Urine Culture - Preliminary Urine,Voided 10/10/19 17:30 Blood Culture - Final Blood Assessment and Plan Assessment: Urinary tract infection associated with sepsis and E. coli bacteremia -Continue with IV fluids -Continue Rocephin -Await urine culture -Follow CBC -Stop enablex Hypertensive urgency improved -Continue with losartan -Patient does have a history of medication noncompliance it would be best to tailor her regiment -Follow blood pressures Atherosclerotic coronary artery disease -Aspirin, Lipitor, Cozaar, and Plavix Dyslipidemia -Statin Obesity with BMI 32.6 -Outpatient structured weight loss DVT prophylaxis: Heparin Discussed with: Patient, family, nursing Anticipated discharge: 1-[address]: Home A total of 35 minutes was spent on the care of this complex patient more than 50% of the time was spent in counseling and care coordination.
[2019-10-11] MEDS: ATORVASTATIN 20 MG TAB PO SCH (21:48)
[2019-10-12] MEDS: HEPARIN SODIUM,PORCINE 5,000 UNIT/ML 1 ML VIAL SQ SCH ×4 (00:46→22:55)
[2019-10-12] MEDS: SODIUM CHLORIDE 0.9% 1,000 ML IV SCH ×2 (00:46→09:44)
[2019-10-12] MEDS: CLOPIDOGREL 75 MG TAB PO SCH (08:30)
[2019-10-12] MEDS: LOSARTAN 50 MG TAB PO SCH (08:30)
[2019-10-12] MEDS: ASPIRIN 81 MG PO SCH (08:30)
[2019-10-12 08:32] LABS: HCT 38.1 % (34.0-46.0); HGB 12.8 gm/dL (11.4-16.0); MCH 30.6 pg (25.0-35.0); MCHC 33.5 g/dL (31.0-37.0); MCV 91.3 fL (80.0-100.0); Mean Platelet Volume 7.6; Platelet Count 165 k/uL (150-450); RBC 4.17 m/uL (3.80-5.40); RDW 13.6 % (11.5-15.5); WBC 11.1 k/uL (3.8-10.6)
[2019-10-12 08:42] LABS: African American GFR (CKD) >90 (>60 ml/min/1.73 sqM); Anion Gap 9 mmol/L; Blood Urea Nitrogen 12 mg/dL (7-17); Calcium 8.4 mg/dL (8.4-10.2); Carbon Dioxide 23 mmol/L (22-30); Chloride 102 mmol/L (98-107); Glucose 216 mg/dL (74-99); Potassium 3.9 mmol/L (3.5-5.1); Sodium 134 mmol/L (137-145)
[2019-10-12 14:29] VITALS: BMI 32.5
--- NOTE | 2019-10-12 14:49 | P.PN ---
Subjective Progress Note Date: 10/12/19 (delayed charting seen at 1140) Principal diagnosis: fatigue Patient is an 79-year-old female with a past medical history of hypertension, coronary artery disease, and dyslipidemia who initially presented to the emergency department with complaints of generalized weakness, chills, and hematuria. In the ER she underwent an extensive evaluation. On arrival her vital signs are within normal limits. She then spiked a fever of 100.3. Initial laboratory analysis showed white blood cell count of 15.6, sodium 133, glucose of 157, influenza negative, and urinalysis was consistent with urinary tract infection. She was admitted for urinary tract infection with sepsis. She was started on Rocephin and IV fluids. On the morning of 10/11 her blood cultures came back positive for E. coli. Her white blood cell count had also increased to 18,000.she was continued on IV fluids and her Rocephin was increased to 2 g. On the morning of 10/12 her fevers were abated and her white blood cell count decreased to 11.1. Patient seen and examined at bedside. cervix take the feeling better than yesterday. No nausea or vomiting. Still with a decreased appetite. No diarr hea. No chest pain or shortness of breath. Family present at bedside and all questions answered. Objective - Vital Signs Vital signs: Vital Signs Temp 98.0 F 10/12/19 14:23 Pulse 71 10/12/19 14:23 Resp 15 10/12/19 14:23 BP 137/82 10/12/19 14:23 Pulse Ox 97 10/12/19 14:23 Intake & Output 10/11/19 10/12/19 10/12/19 18:59 06:59 18:59 Intake Total 150 Balance 150 Weight 86.183 kg Intake: Oral 150 Other: Voiding Method Toilet Bedside Commode Toilet Incontinent Incontinent Incontinent # Voids 1 1 2 - Exam General: nontoxic, no distress, appears at stated age, obese Derm: warm, dry Head: atraumatic, normocephalic, symmetric Eyes: EOMI, no lid lag, anicteric sclera Mouth: no lip lesion, mucus membranes moist Cardiovascular: S1S2 reg, no murmur, positive posterior tibial pulse bilateral, Lungs: clear to auscultation bilateral, no rhonchi, no rales , no accessory muscle use Abdominal: soft, nontender to palpation, no guarding, no appreciable organomegaly Ext: no gross muscle atrophy, no edema, no contractures Neuro: CN II-XI grossly intact, no focal neuro deficits Psych: Alert, oriented, appropriate affect - Labs CBC & Chem 7: 10/12/19 07:41 10/12/19 07:41 Labs: Abnormal Lab Results - Last 24 Hours (Table) 10/12/19 10/12/19 Range/Units 07:41 07:41 WBC 11.1 H (3.8-10.6) k/uL Sodium 134 L (137-145) mmol/L Glucose 216 H (74-99) mg/dL Microbiology - Last 24 Hours (Table) 10/10/19 18:50 Urine Culture - Preliminary Urine,Voided Gram Neg Bacilli 10/10/19 17:30 Blood Culture Gram Stain - Preliminary Blood Blood Culture - Preliminary Escherichia coli Assessment and Plan Assessment: Urinary tract infection associated with sepsis and E. coli bacteremia -IV fluids completed -Continue Rocephin -Await urine culture -Follow CBC -Stop enablex Hypertensive urgency improved -Continue with losartan -Patient does have a history of medication noncompliance it would be best to tailor her regimentto 100 only. -Follow blood pressures Atherosclerotic coronary artery disease -Aspirin, Lipitor, Cozaar, and Plavix Dyslipidemia -Statin Obesity with BMI 32.6 -Outpatient structured weight loss DVT prophylaxis: Heparin Discussed with: Patient, family, nursing Anticipated discharge: in a.m. if culture results available. Anticipated discharge place: Home A total of 35 minutes was spent on the care of this complex patient more than 50% of the time was spent in counseling and care coordination.
--- NOTE | 2019-10-12 16:30 | XR ---
EXAMINATION TYPE: XR chest 1V portable DATE OF EXAM: 10/12/2019 HISTORY: Shortness of breath. COMPARISON: 10/10/19 TECHNIQUE: Single view of the chest is submitted. FINDINGS: Demonstrated are scattered senescent parenchymal change. There is no evidence for focal infiltrate. The heart is stable. Hilar and mediastinal structures are within normal limits. Degenerative changes are seen of the dorsal spine. IMPRESSION: 1. Chronic changes without evidence for acute pulmonary disease.
[2019-10-12] MEDS ORDERED: FUROSEMIDE 10 MG/ML 4 ML VIAL IV STA (17:09)
[2019-10-12] MEDS: ATORVASTATIN 20 MG TAB PO SCH (22:40)
[2019-10-12 23:27] VITALS: RESP 20
[2019-10-13 07:23] VITALS: BP 157/78; PULSE 77; TEMP 97.8
[2019-10-13 07:54] LABS: HCT 35.3 % (34.0-46.0); HGB 11.7 gm/dL (11.4-16.0); MCH 30.2 pg (25.0-35.0); MCHC 33.1 g/dL (31.0-37.0); MCV 91.3 fL (80.0-100.0); Mean Platelet Volume 7.9; Platelet Count 164 k/uL (150-450); RBC 3.87 m/uL (3.80-5.40); RDW 13.4 % (11.5-15.5); WBC 7.9 k/uL (3.8-10.6)
[2019-10-13 08:04] LABS: African American GFR (CKD) >90 (>60 ml/min/1.73 sqM); Anion Gap 5 mmol/L; Blood Urea Nitrogen 22 mg/dL (7-17); Calcium 8.3 mg/dL (8.4-10.2); Carbon Dioxide 29 mmol/L (22-30); Chloride 103 mmol/L (98-107); Glucose 127 mg/dL (74-99); Potassium 3.7 mmol/L (3.5-5.1); Sodium 137 mmol/L (137-145)
[2019-10-13] MEDS: LOSARTAN 50 MG TAB PO SCH (08:35)
[2019-10-13] MEDS: ASPIRIN 81 MG PO SCH (08:35)
[2019-10-13] MEDS: HEPARIN SODIUM,PORCINE 5,000 UNIT/ML 1 ML VIAL SQ SCH (08:36)
[2019-10-13] MEDS: CLOPIDOGREL 75 MG TAB PO SCH (08:36)
--- NOTE | 2019-10-13 10:22 | P.DS ---
Providers Date of admission: 10/11/19 12:25 Expected date of discharge: 10/13/19 Attending physician: Aileen Rollins DO Primary care physician: [facility] Course: 79-year-old female with history of hypertension and coronary artery disease came in with generalized weakness and not feeling well along with chills and hematuria. No abdominal pain, dysuria, frequent urination or nocturia. She reported that she was diagnosed with urinary tract infection about a week ago received 3 days of antibiotics patient however admitted that she was not compliant with her medications. She doesn't take any of her medications as they make her feel sick she is only compliant to aspirin and Plavix. She would take one of her blood pressure medications couple times a month. On labs she was found to have UTI, blood cultures grew E. coli later in the hospitalization. She was treated with ceftriaxone IV. Initially he was found to have elevated blood pressure but that improved with continuation of her BP meds. Compliance with her medications was emphasized. Today she is feeling much better and stronger, she is able to get up by herself without requiring any assistance. Patient Condition at Discharge: Stable Plan - Discharge Summary New Discharge Prescriptions: New Ciprofloxacin HCl [Cipro] 500 mg PO Q12H 7 Days #14 tab Acetaminophen Tab [Tylenol] 650 mg PO Q6HR PRN tab PRN Reason: Mild Pain Or Fever > 100.5 Continue Losartan [Cozaar] 100 mg PO DAILY #30 tab Nitroglycerin Sl Tabs [Nitrostat] 0.4 mg SUBLINGUAL Q5M PRN #253 tab PRN Reason: Chest Pain Aspirin [Adult Low Dose Aspirin EC] 81 mg PO DAILY #30 tablet. Cholecalciferol (Vitamin D3) [Vitamin D3] 4,000 unit PO DAILY Darifenacin Hydrobromide [Enablex] 15 mg PO DAILY Clopidogrel Bisulfate [Plavix] 75 mg PO DAILY Metoprolol Tartrate [Lopressor] 12.5 mg PO BID Magnesium(Unknown Dose) 1 tab PO DAILY Discharge Medication List Aspirin [Adult Low Dose Aspirin EC] 81 mg PO DAILY #30 tablet. 12/06/18 [Rx] Losartan [Cozaar] 100 mg PO DAILY #30 tab 12/06/18 [Rx] Nitroglycerin Sl Tabs [Nitrostat] 0.4 mg SUBLINGUAL Q5M PRN #253 tab 12/06/18 [Rx] Cholecalciferol (Vitamin D3) [Vitamin D3] 4,000 unit PO DAILY 10/10/19 [History] Clopidogrel Bisulfate [Plavix] 75 mg PO DAILY 10/10/19 [History] Darifenacin Hydrobromide [Enablex] 15 mg PO DAILY 10/10/19 [History] Magnesium(Unknown Dose) 1 tab PO DAILY 10/10/19 [History] Metoprolol Tartrate [Lopressor] 12.5 mg PO BID 10/10/19 [History] Acetaminophen Tab [Tylenol] 650 mg PO Q6HR PRN tab 10/13/19 [Rx] Ciprofloxacin HCl [Cipro] 500 mg PO Q12H 7 Days #14 tab 10/13/19 [Rx] Follow up Appointment(s)/Referral(s): Nomi Naylor MD [Primary Care Provider] - 1-2 days
== END 2019-10-13 14:27 | disposition home or self-care (01) | DRG 872 ==
LOC: EC 16:17 → 4MS4W 19:54 → OBSVTOIN 10-11 12:25 → 4MS4W 10-13 11:41
PROVIDERS: ADMIT Internal Medicine; ATTEND Internal Medicine
DX: A41.51 Sepsis due to Escherichia coli [E. coli] (principal); N39.0 Urinary tract infection, site not specified; R31.9 Hematuria, unspecified; E66.9 Obesity, unspecified; E78.5 Hyperlipidemia, unspecified; I10 Essential (primary) hypertension; I16.0 Hypertensive urgency; I25.10 Atherosclerotic heart disease of native coronary artery without angina pectoris; R32 Unspecified urinary incontinence; Z68.32 Body mass index [BMI] 32.0-32.9, adult; Z79.02 Long term (current) use of antithrombotics/antiplatelets; Z79.82 Long term (current) use of aspirin; Z79.899 Other long term (current) drug therapy; Z95.5 Presence of coronary angioplasty implant and graft; Z87.440 Personal history of urinary (tract) infections; Z88.5 Allergy status to narcotic agent; Z91.040 Latex allergy status; T46.5X6A Underdosing of other antihypertensive drugs, initial encounter; T44.7X6A Underdosing of beta-adrenoreceptor antagonists, initial encounter; Z91.128 Patient's intentional underdosing of medication regimen for other reason
CPT/HCPCS: 36415; 71045; 71046; 80048; 80053; 81001; 83605; 84484; 85025; 85027; 85610; 85730; 87040; 87077; 87086; 87186; 87502; 93005; 96361; 96365; 99285

== ENCOUNTER → 2019-12-09 | Outpatient (CLI) | payer MEDICARE ==
[2019-12-09 18:37] LABS: African American GFR (CKD) 80.1 (60.0-200.0); Anion Gap 7.8 mmol/L (4.00-12.00); Calcium 9.7 mg/dL (8.7-10.3); Carbon Dioxide 28.2 mmol/L (21.6-31.8); Chol/HDL Ratio 4.59; LDL Cholesterol,Calculated 189.2 mg/dL (0.0-131.0); Non-African American GFR(CKD) 69.1 (60.0-200.0); Potassium 4.2 mmol/L (3.5-5.5); VLDL Calculation 36.8 mg/dL (5.00-40.00)
== END | disposition home or self-care (01) ==
LOC: LABWHC1 12:49
PROVIDERS: ATTEND Nurse Practitioner Adult Health
DX: I10 Essential (primary) hypertension (principal)
CPT/HCPCS: 36415; 80048; 80061; 83735